=== PATIENT | female | born 1990 | race Caucasian/White ===

== ENCOUNTER 2022-12-23 09:32 | Outpatient (CLI) | payer OTHER, SELFPAY | END 2022-12-23 09:33 | disposition home or self-care (01) | PROVIDERS: PCP Family Medicine; Visit Provider Family Medicine | DX: Z00.00 Encounter for general adult medical examination without abnormal findings (principal); R53.83 Other fatigue; F41.9 Anxiety disorder, unspecified; F32.A Depression, unspecified; Z13.6 Encounter for screening for cardiovascular disorders | CPT/HCPCS: 80053; 80061; 84443 ==

== ENCOUNTER 2023-03-07 14:19 | Emergency (ER) | payer OTHER, SELFPAY ==
[2023-03-07 14:36] VITALS: BP 111/77; PULSE 95; RESP 16; TEMP 37.3; O2SAT 99; BMI 33.9
--- NOTE | 2023-03-07 15:54 | ED.GENADULT ---
HPI - General Adult General Time Seen by Provider: 15:55 Date Seen: 03/07/23 Chief complaint: Extremity Pain/Injury, Lower Stated complaint: R foot injury Time Seen by Provider: 03/07/23 15:45 Source: patient and RN notes reviewed Mode of arrival: wheelchair Limitations: no limitations History of Present Illness HPI narrative: Janet is a 33-year-old female that is about 8 weeks coming in with right foot pain. She points to the plantar surface by the metatarsal heads. It hurts to walk on it, feels somewhat swollen. No numbness tingling, no trauma, no fevers or chills. No history of thromboembolic disease. Related Data Home Medications Medication Instructions Recorded Confirmed ibuprofen 200 mg capsule 200 mg PO Q6H PRN 12/23/22 02/15/23 Previous Rx's Medication Instructions Recorded lorazepam 0.5 mg tablet (Ativan) 0.25 - 0.5 mg (0.5 - 1 x 0.5 mg) 12/23/22 PO QDAY PRN panic attack #10 tabs sumatriptan succinate 100 mg 100 mg PO .COMPLEX PRN migraine 12/23/22 tablet (Imitrex) headache #7 tabs trazodone 50 mg tablet 50 mg PO QDAY PRN insomnia #30 tabs 12/23/22 Asmanex HFA 200 mcg/actuation 1 puff inhalation QHS #13 grams 02/03/23 aerosol inhaler (mometasone) albuterol sulfate 90 mcg/actuation 2 puff inhalation Q6H PRN 02/03/23 aerosol inhaler shortness of breath or wheezing #8.5 grams montelukast 10 mg tablet 10 mg PO QDAY #90 tabs 02/03/23 venlafaxine 37.5 mg 37.5 - 150 mg (1 - 4 x 37.5 mg) PO 02/15/23 capsule,extended release 24 hr QDAY #90 caps (Effexor XR) Allergies Allergy/AdvReac Type Severity Reaction Status Date / Time oxycodone Allergy Severe Vomiting Verified 03/07/23 14:40 escitalopram [From Lexapro] AdvReac Intermediate Dizziness Verified 03/07/23 14:40 z-pac Allergy Intermediate GI upset Uncoded 02/03/23 09:00 Review of Systems Narrative: As per HPI. 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 - Other specified metabolic disorders (ICD-10) Menorrhagia ?N92.0 - Excessive and frequent menstruation with regular cycle (ICD-10) Mild persistent asthma ?J45.30 - Mild persistent asthma, uncomplicated (ICD-10) Anxiety ?F41.9 - Anxiety disorder, unspecified (ICD-10) Depression ?F32.A - Depression, unspecified (ICD-10) Palpitations ?R00.2 - Palpitations (ICD-10) Migraine with aura ?G43.109 - Migraine with aura, not intractable, without status migrainosus (ICD-10) Surgical History History of colonoscopy (2007) ?Z98.890 - Other specified postprocedural states (ICD-10) Hx of esophagogastroduodenoscopy (2007) ?Z98.890 - Other specified postprocedural states (ICD-10) History of hip surgery (2015) ?Z98.890 - Other specified postprocedural states (ICD-10) History of appendectomy (~2003) ?Z90.49 - Acquired absence of other specified parts of digestive tract (ICD-10) Family History Maternal Grandmother Valvular heart disease Mother Depression with anxiety Bipolar disorder Social History Narrative: 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, 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, 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, 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 [place] Lifetime nonsmoker 2 alcoholic drinks a week No drug use Smoking Status: Never smoker How often do you have a drink containing alcohol: never AUDIT-C Alcohol total score: 0 Non-prescribed substance use: denies use Little interest or pleasure in doing things: nearly every day Feeling down, depressed, or hopeless: nearly every day Exam Const: Vital Signs, click to edit/add: Vital Signs - 24 hr 03/07/23 14:36 Temperature 99.2 F Pulse Rate [Pulse Oximeter] 95 Respiratory Rate 16 Blood Pressure [Ri ght Upper Arm] 111/77 Pulse Oximetry 99 Oxygen Delivery Me thod Room Air Janet is in a wheelchair, right foot elevated. There may be is a sense of a little swelling over the pads centrally the middle tarsal heads on the right foot. She has no calf tenderness, no pretibial edema. Ankle mortise is normal, no swelling. She has normal dorsalis pedis and posterior tibialis pulses, foot is warm. She can move about the ankle and wiggle the toes. She states when she moves the ankle though she feels pain into the metatarsal head areas. When I compress the metatarsal heads from side to side in word she complains of pain with this. She has pain primarily over the 1st and 2nd and 2nd and 3rd interdigital web spaces by the metatarsal heads on this foot. There is no warmth or erythematous change. Documenting provider has reviewed patient's vital signs: yes Course Course ED Course: Patient will have an x-ray of her foot to rule out atraumatic injury, ultrasound of the lower extremity to rule out venous thrombotic disease. We did discuss conditions such is metatarsalgia, other foot conditions that could become issue without trauma. Reevaluation(s) Time of Reevaluation #1: 18:02 Reevaluation #1: Reviewed with patient her a negative ultrasound and x-ray. We did discuss that the ultrasound does not extend down into the foot, do not have way to look at veins within the foot. Thus, if she starts noticing increased swelling and pain up into the calf, does need re-evaluation. The meantime will try a postop shoe. She does have crutches for pain free weight-bearing. Recommend follow up in clinic with her primary, consider referral to Podiatry or Orthopedics if ongoing symptoms. Vital Signs Vital signs: Initial Vital Signs Temperature 99.2 F 03/07/23 14:36 Temperature Source Temporal Artery Scan 03/07/23 14:36 Pulse Rate 95 03/07/23 14:36 Respiratory Rate 16 03/07/23 14:36 Blood Pressure 111/77 03/07/23 14:36 Blood Pressure Mean 88 03/07/23 14:36 Blood Pressure Position Sitting 03/07/23 14:36 Pulse Oximetry 99 03/07/23 14:36 Oxygen Delivery Method Room Air 03/07/23 14:36 Vital Signs Temperature 99.2 F 03/07/23 14:36 Pulse Rate 95 03/07/23 14:36 Respiratory Rate 16 03/07/23 14:36 Blood Pressure 111/77 03/07/23 14:36 Pulse Oximetry 99 03/07/23 14:36 Oxygen Delivery Method Room Air 03/07/23 14:36 Temperature 99.2 F 03/07/23 14:36 Pulse Rate 95 03/07/23 14:36 Respiratory Rate 16 03/07/23 14:36 Blood Pressure 111/77 03/07/23 14:36 Pulse Oximetry 99 03/07/23 14:36 Oxygen Delivery Method Room Air 03/07/23 14:36 Medical Decision Making Imaging Data Venous US: Attestation: I have reviewed the pertinent imaging results. Radiologist's impression: Patient: JANET RIVERO Facility:?[facility] Patient ID:?[id number] Site Patient ID:?[id number]. Site :?[id number] Study:?US Extremity Right DVT-03/07/2023 4:43:29 PM Ordering Physician:Charles Beyer Final Report: INDICATION: Right lower extremity swelling. TECHNIQUE: Ultrasound venous duplex bilateral lower extremity. Compression venous exam was performed using martell-scale, color Doppler, and spectral Doppler analysis. COMPARISON: None. FINDINGS: Deep veins: Sonographic imaging demonstrates the right common femoral, deep femoral, superficial femoral, popliteal, and posterior tibial veins to be fully compressible with normal color Doppler blood flow. The left common femoral vein demonstrated normal flow on color Doppler imaging. Superficial veins: Greater saphenous vein is fully compressible. No popliteal cyst. IMPRESSION: Normal right lower extremity venous ultrasound. No deep vein thrombus. Dictated by Antonio Trevino MD @ 03/07/2023 5:42:51 PM (Electronic Signature) XR right foot: Attestation: I have reviewed the pertinent imaging results. Radiologist's impression: Patient: JANET RIVERO Facility:?[facility] Patient ID:?[id number] Site Patient ID:?[id number]. Site :?[id number] Study:?XRay Extremity Right 3V-03/07/2023 4:19:09 PM Ordering Physician:Charles Beyer Final Report: Indication: Trauma. Technique: Three views right foot Comparison: None. Findings: Bones: Alignment is normal. No fractures or bone lesions. Joint spaces: Mild joint space narrowing of the 1st MTP joint. Remaining joint spaces preserved. No erosions. Soft tissues: Unremarkable. Impression: Mild narrowing of 1st MTP joint. Remaining joint space is preserved. No erosions. No acute fracture. Dictated by Kwadwo Fischer MD @ 03/07/2023 5:01:36 PM (Electronic Signature) Discharge Plan Discharge Clinical Impression: Acute pain of right foot Patient Disposition: Home, Self-Care Condition: Stable Instructions: Arthralgia (ED) Additional Instructions: There can be conditions of the foot, things like metatarsalgia, Arnold's neuroma, except aura, that can cause pain within the foot that are not traumatic. Can use the postop shoe and or crutches as needed for pain-free weight-bearing. Can use Tylenol per bottle directions for pain management during . Otherwise can try ice and elevation. Follow up with her primary care provider within the next week for recheck. Consideration for Orthopedics or Podiatry if ongoing issues. Activity Level: Activity as Tolerated Prescriptions: No Action ibuprofen 200 mg capsule 200 mg PO Q6H PRN lorazepam [Ativan] 0.5 mg tablet 0.25 - 0.5 mg PO QDAY PRN (Reason: panic attack) Qty: 10 0RF sumatriptan succinate [Imitrex] 100 mg tablet 100 mg PO .COMPLEX PRN (Reason: migraine headache) Qty: 7 4RF Rx Instructions: 100 mg orally PRN; trazodone 50 mg tablet 50 mg PO QDAY PRN (Reason: insomnia) Qty: 30 0RF montelukast 10 mg tablet 10 mg PO QDAY Qty: 90 4RF Asmanex HFA 200 mcg/actuation HFA aerosol inhaler 1 puff inhalation QHS Qty: 13 12RF albuterol sulfate 90 mcg/actuation HFA aerosol inhaler 2 puff inhalation Q6H PRN (Reason: shortness of breath or wheezing) Qty: 8.5 4RF venlafaxine [Effexor XR] 37.5 mg capsule,extended release 24hr 37.5 - 150 mg PO QDAY Qty: 90 1RF Rx Instructions: Take 1 c po qd x 4 d, then increase to 2 c qd x 1 wk, then increase to 4 c daily for depression Follow Up/Referrals: Ksenia Hannon MD [Primary Care Provider] - Stand Alone Forms: [employer] Info Instructions
--- NOTE | 2023-03-07 16:03 | CRLHL7_ITS ---
For Patients: As a result of the Cures Act, medical imaging exams and procedure reports are released immediately into your electronic medical record. You may view this report before your referring provider. If you have questions, please contact your health care provider. Indication: Trauma. Technique: Three views right foot Comparison: None. Findings: Bones: Alignment is normal. No fractures or bone lesions. Joint spaces: Mild joint space narrowing of the 1st MTP joint. Remaining joint spaces preserved. No erosions. Soft tissues: Unremarkable. Impression: Mild narrowing of 1st MTP joint. Remaining joint space is preserved. No erosions. No acute fracture. Dictated by Kwadwo Fischer MD @ 03/07/2023 5:01:36 PM (Electronically Signed)
--- NOTE | 2023-03-07 16:03 | CRLHL7_ITS ---
For Patients: As a result of the Century Cures Act, medical imaging exams and procedure reports are released immediately into your electronic medical record. You may view this report before your referring provider. If you have questions, please contact your health care provider. INDICATION: Right lower extremity swelling. TECHNIQUE: Ultrasound venous duplex bilateral lower extremity. Compression venous exam was performed using martell-scale, color Doppler, and spectral Doppler analysis. COMPARISON: None. FINDINGS: Deep veins: Sonographic imaging demonstrates the right common femoral, deep femoral, superficial femoral, popliteal, and posterior tibial veins to be fully compressible with normal color Doppler blood flow. The left common femoral vein demonstrated normal flow on color Doppler imaging. Superficial veins: Greater saphenous vein is fully compressible. No popliteal cyst. IMPRESSION: Normal right lower extremity venous ultrasound. No deep vein thrombus. Dictated by Antonio Trevino MD @ 03/07/2023 5:42:51 PM (Electronically Signed)
--- NOTE | 2023-03-07 18:04 | ED.NURSE ---
placed a post op shoe on the right foot
== END 2023-03-07 18:10 | disposition home or self-care (01) ==
PROVIDERS: Emergency Provider Family Medicine; PCP Family Medicine
DX: M79.671 Pain in right foot (principal)
CPT/HCPCS: 73630; 93971; 99283; 99284

== ENCOUNTER 2023-03-15 10:21 | Outpatient (CLI) | payer OTHER, SELFPAY ==
--- NOTE | 2023-03-15 10:45 | CRLHL7_ITS ---
For Patients: As a result of the Cures Act, medical imaging exams and procedure reports are released immediately into your electronic medical record. You may view this report before your referring provider. If you have questions, please contact your health care provider. INDICATION: First trimester scan, establish dates. COMPARISON: None. TECHNIQUE: Real-time martell-scale imaging of the pelvis was performed. FINDINGS: Sonographic imaging demonstrates a single living intrauterine gestation. The embryo demonstrates a regular cardiac rate measuring 174 beats per minute. The embryo`s crown-rump length measurement of 2.5 cm corresponds to a gestational age of 9 weeks 1 day with a sonographic due date of 10.17.23. There is a normal-appearing yolk sac. There are no gross abnormalities noted within the embryo at this early state of development. The gestational sac has a normal appearance. There is no evidence of a perigestational hemorrhage. The amount of fluid within the sac appears appropriate for gestational age. The cervix is closed. The myometrium appears normal. The ovaries are of normal size. There are no suspicious fluid collections noted in the cul-de-sac. IMPRESSION: Normal first trimester OB ultrasound exam. Gestational age calculated at 9 weeks 1 day with a sonographic due date of 10.17.23. Dictated by Royce Roa MD @ 03/16/2023 12:03:56 PM (Electronically Signed)
== END 2023-03-15 10:22 | disposition home or self-care (01) ==
LOC: US 10:22
PROVIDERS: PCP Family Medicine; Visit Provider Advanced Practice Midwife
DX: Z34.91 Encounter for supervision of normal pregnancy, unspecified, first trimester (principal); Z3A.09 9 weeks gestation of pregnancy
CPT/HCPCS: 76817; 82306; 86703; 86706; 86803; 86850; 86900; 86901; 87086; 87340; 87491; 87591

== ENCOUNTER 2023-03-15 11:41 | Outpatient (CLI) | payer OTHER, SELFPAY ==
[2023-03-15 15:55] LABS: Chlamydia DNA Amplified* NOT DETECTED (No Detected); GC DNA Amplified* NOT DETECTED (No Detected)
== END 2023-03-15 11:42 | disposition home or self-care (01) ==
PROVIDERS: PCP Family Medicine; Visit Provider Advanced Practice Midwife
DX: Z34.91 Encounter for supervision of normal pregnancy, unspecified, first trimester (principal)
CPT/HCPCS: 82306; 86592; 86703; 86704; 86706; 86762; 86787; 86803; 86850; 86900; 86901; 87086; 87340; 87491; 87591

== ENCOUNTER 2023-05-08 12:14 | Emergency (ER) | payer OTHER, SELFPAY ==
[2023-05-08 12:35] VITALS: BP 142/88; PULSE 120; RESP 20; TEMP 37.9; O2SAT 98; BMI 34.4
--- NOTE | 2023-05-08 12:44 | ED.GENADULT ---
HPI - General Adult General Chief complaint: Cough Stated complaint: Flu symptoms Time Seen by Provider: 05/08/23 12:17 History of Present Illness HPI narrative: [age] year white female who is about 16 weeks estimated age , presents with a cough and cold over the last few days. She started getting sick earlier in the week about 5 days ago and then let yesterday and today has had a cough. Dry hacking cough. She has not had any known exposures. She presents to ED. [facility]. She has had no vaginal bleeding or contractions. Related Data Home Medications Medication Instructions Recorded Confirmed vits [id number] fum tab PO DAILY 03/15/23 04/12/23 28 mg iron-folic acid 800 mcg tablet (Classic ) aspirin 81 mg tablet,delayed 81 mg PO QDAY 04/12/23 04/12/23 release (Fabiano Low Dose Aspirin) Previous Rx's Medication Instructions Recorded lorazepam 0.5 mg tablet (Ativan) 0.25 - 0.5 mg (0.5 - 1 x 0.5 mg) 12/23/22 PO QDAY PRN panic attack #10 tabs sumatriptan succinate 100 mg 100 mg PO .COMPLEX PRN migraine 12/23/22 tablet (Imitrex) headache #7 tabs trazodone 50 mg tablet 50 mg PO QDAY PRN insomnia #30 tabs 12/23/22 Asmanex HFA 200 mcg/actuation 1 puff inhalation QHS #13 grams 02/03/23 aerosol inhaler (mometasone) albuterol sulfate 90 mcg/actuation 2 puff inhalation Q6H PRN 02/03/23 aerosol inhaler shortness of breath or wheezing #8.5 grams montelukast 10 mg tablet 10 mg PO QDAY #90 tabs 02/03/23 venlafaxine 37.5 mg 37.5 - 150 mg (1 - 4 x 37.5 mg) PO 02/15/23 capsule,extended release 24 hr QDAY #90 caps (Effexor XR) cholecalciferol (vitamin D3) 1,250 1,250 mcg PO DIRECTED #10 caps 03/15/23 mcg (50,000 unit) capsule ondansetron HCl 4 mg tablet 4 mg PO TID PRN nausea and 03/15/23 vomiting #30 tabs Allergies Allergy/AdvReac Type Severity Reaction Status Date / Time oxycodone Allergy Severe Vomiting Verified 04/12/23 09:13 escitalopram [From Lexapro] AdvReac Intermediate Dizziness Verified 04/12/23 09:13 z-pac Allergy Intermediate GI upset Uncoded 04/12/23 09:13 walnuts AdvReac Intermediate Rash Uncoded 04/12/23 09:14 Review of Systems Status of ROS: Reports: 6 or more systems reviewed and unremarkable except as noted in History and below PFSH PFS Medical History Low vitamin D level ?R79.89 - Other specified abnormal findings of blood chemistry (ICD-10) Passive suicidal ideations ?R45.851 - Suicidal ideations (ICD-10) Medication management ?Z79.899 - Other usp (current) drug therapy (ICD-10) Mood disorder ?F39 - Unspecified mood [affective] disorder (ICD-10) History of Holter monitoring ?Z98.890 - Other specified postprocedural states (ICD-10) 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 - Other specified metabolic disorders (ICD-10) Menorrhagia ?N92.0 - Excessive and frequent menstruation with regular cycle (ICD-10) Mild persistent asthma ?J45.30 - Mild persistent asthma, uncomplicated (ICD-10) Anxiety ?F41.9 - Anxiety disorder, unspecified (ICD-10) Depression ?F32.A - Depression, unspecified (ICD-10) Palpitations ?R00.2 - Palpitations (ICD-10) Migraine with aura ?G43.109 - Migraine with aura, not intractable, without status migrainosus (ICD-10) Surgical History History of colonoscopy (2007) ?Z98.890 - Other specified postprocedural states (ICD-10) Hx of esophagogastroduodenoscopy (2007) ?Z98.890 - Other specified postprocedural states (ICD-10) History of hip surgery (2015) ?Z98.890 - Other specified postprocedural states (ICD-10) History of appendectomy (~2003) ?Z90.49 - Acquired absence of other specified parts of digestive tract (ICD-10) Family History Maternal Grandmother Valvular heart disease Mother Depression with anxiety Bipolar disorder Father Stroke Social History Narrative: SOCIAL? ? Education: some college? ? Work: [employer], [employer]? ? Partner: Julio, Not , [employer]? ? Lives with: Miles? ? Pets: Dog? ? Abuse: Denies past Safe at home with current partner ? ? Special Diet: Denies? ? Ok with a blood transfusion: yes? ? Culture or scientology beliefs: denies? RISK FACTORS? ? Exercise Times/wk: denies, previous runner, makes her nauseated. ? ? Depression/Anxiety: Both.? ? Previous Treatments: Prozac, escitalopram, Started on effexor, unable to keep down, waiting until not nauseated Therapy: denies TOYIN: 14 PHQ 9: 16 Sitting at home frequently, not doing much. Partner is often not home, so unable to help.? Denies thought of suicide or plans. ? Seat Belt Use: Routinely ? Smoking: Denies past/present? ? Alcohol/day: Denies while ? ? Caffeine: Occasionally ? ? Drug Use: Denies past/present? 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 Meléndezsper Lifetime nonsmoker 2 alcoholic drinks a week No drug use What is your current living situation?: I presently have a place to live Problems where you live: no known problems In the past 12 months, utilities in danger of being shut off: no In the past 12 mos, have been you worried that your food would run out before you had money to buy more?: never true In the past 12 mos, the food you bought just didn't last and you didn't have money to buy more?: never true Smoking Status: Never smoker How often do you have a drink containing alcohol: never AUDIT-C Alcohol total score: 0 Non-prescribed substance use: denies use How often does anyone, including family, friends and others, physically hurt you: never How often does anyone, including family, friends and others, insult or talk down to you: rarely How often does anyone, including family, friends and others, threaten you with harm: never How often does anyone, including family, friends and others, scream or curse at you: never Little interest or pleasure in doing things: more than half the days Feeling down, depressed, or hopeless: more than half the days Exam Narrative: Exam Narrative: Objective mild low-grade temperature 100.2? O2 sat 90% on room air Alert orient x3 HEENT is unremarkable she has a point of motion of her neck chest is clear no rales or wheezing pulses regular Good peripheral perfusion noted , patient is ambulatory Const: Vital Signs, click to edit/add: Vital Signs - 24 hr 05/08/23 12:35 05/08/23 12:53 Temperature 100.2 F H Pulse Rate [Pulse Oximeter] 120 H 93 Respiratory Rate 20 Blood Pressure [Ri ght Upper Arm] 142/88 H Pulse Oximetry 98 98 Oxygen Delivery Me thod Room Air Room Air Course Vital Signs Vital signs: Initial Vital Signs Temperature 100.2 F H 05/08/23 12:35 Temperature Source Temporal Artery Scan 05/08/23 12:35 Pulse Rate 120 H 05/08/23 12:35 Respiratory Rate 20 05/08/23 12:35 Blood Pressure 142/88 H 05/08/23 12:35 Blood Pressure Mean 106 H 05/08/23 12:35 Blood Pressure Position Sitting 05/08/23 12:35 Pulse Oximetry 98 05/08/23 12:35 Oxygen Delivery Method Room Air 05/08/23 12:35 Vital Signs Temperature 100.2 F H 05/08/23 12:35 Pulse Rate 120 H 05/08/23 12:35 Respiratory Rate 20 05/08/23 12:35 Blood Pressure 142/88 H 05/08/23 12:35 Pulse Oximetry 98 05/08/23 12:35 Oxygen Delivery Method Room Air 05/08/23 12:35 Temperature 100.2 F H 05/08/23 12:35 Pulse Rate 93 05/08/23 12:53 Respiratory Rate 20 05/08/23 12:35 Blood Pressure 142/88 H 05/08/23 12:35 Pulse Oximetry 98 05/08/23 12:53 Oxygen Delivery Method Room Air 05/08/23 12:53 Medical Decision Making MDM Narrative Medical decision making narrative: Sixteen weeks estimated gestational age with upper respiratory infection, probable RSV. Patient will get a COVID/influenza/RSV test. Will call her with the results. I think she can go home, rest light activity, Tylenol as needed, steam, fluid such as hot tea would be reasonable. Discussed with her OB providers tomorrow with update. Return to ED as needed problems or concerns. At this point does not appear toxic and I do not hear any pneumonia symptoms and with her I think the risk would outweigh the benefit of x-raying. Discharge Plan Discharge Clinical Impression: Acute upper respiratory infection Patient Disposition: Home, Self-Care Condition: Stable Additional Instructions: Steam, fluids, herbal tea as needed. [facility] the next day with symptoms, return to ED sooner problems concerns difficulty. Tylenol acceptable to take Activity Level: Light activity Discharge Diet: Regular Prescriptions: No Action lorazepam [Ativan] 0.5 mg tablet 0.25 - 0.5 mg PO QDAY PRN (Reason: panic attack) Qty: 10 0RF sumatriptan succinate [Imitrex] 100 mg tablet 100 mg PO .COMPLEX PRN (Reason: migraine headache) Qty: 7 4RF Rx Instructions: 100 mg orally PRN; trazodone 50 mg tablet 50 mg PO QDAY PRN (Reason: insomnia) Qty: 30 0RF Classic 28 mg iron- 800 mcg tablet PO DAILY ondansetron HCl 4 mg tablet 4 mg PO TID PRN (Reason: nausea and vomiting) Qty: 30 3RF montelukast 10 mg tablet 10 mg PO QDAY Qty: 90 4RF Asmanex HFA 200 mcg/actuation HFA aerosol inhaler 1 puff inhalation QHS Qty: 13 12RF albuterol sulfate 90 mcg/actuation HFA aerosol inhaler 2 puff inhalation Q6H PRN (Reason: shortness of breath or wheezing) Qty: 8.5 4RF venlafaxine [Effexor XR] 37.5 mg capsule,extended release 24hr 37.5 - 150 mg PO QDAY Qty: 90 1RF Rx Instructions: Take 1 c po qd x 4 d, then increase to 2 c qd x 1 wk, then increase to 4 c daily for depression aspirin [Fabiano Low Dose Aspirin] 81 mg tablet,delayed release (DR/EC) 81 mg PO QDAY cholecalciferol (vitamin D3) 1,250 mcg (50,000 unit) capsule 1,250 mcg PO DIRECTED Qty: 10 0RF Rx Instructions: take 1 c po qwk x 5 wk, then 1 c monthly x 5 mo, for low vit d Follow Up/Referrals: Ksenia Hannon MD [Primary Care Provider] - Stand Alone Forms: [employer] [facility] Info Instructions
[2023-05-08 12:53] VITALS: PULSE 93; O2SAT 98
[2023-05-08 13:46] LABS: PCR FLU A Negative PCR FLU A (Negative); PCR FLU B Negative PCR FLU B (Negative); PCR RSV Negative PCR RSV (Negative)
[2023-05-08 13:49] LABS: SARS PCR* Negative SARS-CoV-2 (Negative)
== END 2023-05-08 12:55 | disposition home or self-care (01) ==
PROVIDERS: Emergency Provider Family Medicine; PCP Family Medicine
DX: J06.9 Acute upper respiratory infection, unspecified (principal); Z3A.16 16 weeks gestation of pregnancy
CPT/HCPCS: 87631; 99283

== ENCOUNTER 2023-06-01 07:11 | Outpatient (CLI) | payer OTHER, SELFPAY ==
--- NOTE | 2023-06-01 07:15 | CRLHL7_ITS ---
For Patients: As a result of the Century Cures Act, medical imaging exams and procedure reports are released immediately into your electronic medical record. You may view this report before your referring provider. If you have questions, please contact your health care provider. INDICATION: Evaluate anatomy. COMPARISON: 03/15/2023 TECHNIQUE: Real time martell scale imaging of the fetus was performed as well as color Doppler analysis of the umbilical vessels. FINDINGS: Sonographic imaging demonstrates a single living intrauterine gestation. Fetus demonstrates a regular cardiac rate of 163 beats per minute. Fetus has a variable position. The placenta lies posteriorly without evidence of placenta previa. Edge of the placenta is located 3.2 cm from the internal cervical os. Amniotic fluid volume appears normal. Single deepest vertical pocket: 5.2 cm. The cervix is closed and measures 3.8 cm in length. The composite ultrasound gestational age is calculated at 21 weeks 0 days with an estimated sonographic due date of 10/12/2023. The estimated weight is 367 grams which lies at the 80th %. The following biometric measurements were obtained: Biparietal diameter: 5.1 cm/21 weeks 2 days 92nd% Head circumference: 18.6 cm/21 weeks 0 days 83rd% Abdominal circumference: 15.6 cm/20 weeks 6 days 71st% Femur length: 3.3 cm/20 weeks 2 days 53rd% The HC/AC ratio measures: 1.19 range (1.06-1.25) On anatomic survey, there is a normal appearance of the cerebral ventricles, cavum septi pellucidi, cisterna magna and cerebellum. The nose, lips, and facial profile appear normal. The cervical, thoracic and lumbar spine are well visualized and appear normal. There is a normal four-chamber heart view and the left and right ventricular outflow tracts appear normal. The diaphragm and stomach appear normal. The kidneys and bladder also appear normal. There is a normal three-vessel cord and cord insertion site. The four extremities appear normal. IMPRESSION: Sonographic gestational age 21 weeks 0 days and sonographic due date of 10/12/2023. Sonographic age 1 week ahead of the clinical age. Estimated weight 80th percentile. Abdominal circumference 71st percentile. No intrinsic abnormalities noted on anatomic survey. Dictated by Royce Roa MD @ 06/01/2023 10:34:45 AM (Electronically Signed)
== END 2023-06-01 07:12 | disposition home or self-care (01) ==
LOC: US 07:11
PROVIDERS: PCP Family Medicine; Visit Provider Obstetrics & Gynecology
DX: Z34.92 Encounter for supervision of normal pregnancy, unspecified, second trimester (principal); Z3A.21 21 weeks gestation of pregnancy
CPT/HCPCS: 76805

== ENCOUNTER 2023-07-13 19:31 | Outpatient (CLI) | payer OTHER, SELFPAY ==
--- OUTSIDE RECORDS SUMMARY | 2023-07-13 19:35 | XMS_ITS | Encounter Summary ---
Author Name Unknown Organization [facility] Address [address] [place] [address] Care Team Providers Care Hose Handler Name Role Phone Erendira Ann APRN, C.N.P., D.N.P. Primary Care Provider Encounter Details Date Type Department Care Team (Late st Contact Info) Description 03/10/2006 Historical Ophthalmology [facility] Corinne Newman M.D. [address] [place] [address] Social History Tobacco Use Types Packs/Day Years Used Date Smoking Tobacco: Never Assessed Sex and Gender Information Value Date Recorded Sex Assigned at Not on file Gender Identity Not on file Sexual Orientation Not on file documented as of this encounter Progress Notes * Corinne Newman M.D. - 03/10/2006 12:00 AM CDT Eye General CHIEF COMPLAINT seeing double HISTORY OF PRESENT ILLNESS Information obtained mainly from mother. Patient speaks very softly. Yesterday, patient has 4 steroid injections in the back of her head and neck for headaches. She has had headaches since June, varying in intensity. After the injections, patient became dizzy and she was laid down and began seeing double. For past few weeks, patients eyes were dilated. Mother had patient seen at [place] [facility] the eyes were reactive and had no explanation for the dilated pupils. Since eyes have been dilated, headaches have increased. Patient states the diplopia is horizontal and sort of like a shadow.Closing either eye does not relieve the diplopia. She is contact lens wearer. Patient denies ocularpain. She states the headaches are frontal and today she rates her pain at a 9 on a scale of 0-10. S he takes Neurontin,Vultaran, and Tylenol. The Neurontin seems to lessen the pain. She was diagnosedwith depression for past 2 years. KAREN: 16yoF w/ h/o depression, anxiety, and chronic daily headache presents w/ 1 day h/o diplopia and dizziness after receiving bilateral occipital and subocciptal injections for the headache. After the injections the patient was dizzy and then developed diplopia. She describes it occurring horizontally, with a faint image to the side. It is present when she closes either the right or left eye andsees it with both eyes. It is worse at near and resolves with blinking. Reports at least one prior episode of double vision that resolved after 10 minutes - does not remember details. The headache isfrontal and present all the time with varying severity and has been worse in the last two weeks. She reports light, noise, and forgetting her pills make it worse. Sometimes associated nausea. Her older sister also has h/o chronic headaches and has learned to live with them per Mom. The dizziness isdescribed as the room spinning. Per mom she has been eating and drinking (only crackers for breakfas t). Reported the dilation started about two weeks ago (per notes 02/24) that was first noticed by her chiropractor per Mom. Prozac was increased from 20 -> 30 mg on 02/14. MRI/MRA 07/12/05 negative. IMPRESSION / REPORT / PLAN #1 Monocular Diplopia No serious DOCK HAND or ocular pathology. Diplopia present still with pinhole. Will likely resolve. Plan: Obtain ORB scan in case 3rd order aberration such as coma. #2 Headache #3 Depression Continue current management with Psych and pain. 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 [address] [place] [phone] PCP - General Family Medicine 02/26/19 documented as of this encounter
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
--- OUTSIDE RECORDS SUMMARY | 2023-07-13 19:35 | XMS_ITS | Encounter Summary ---
Author Name Unknown Organization [facility] Address [address] [place] [address] Care Team Providers Care Assistant Professor Of Mathematics Name Role Phone Erendira Ann APRN, C.N.P., D.N.P. Primary Care Provider Encounter Details Date Type Department Care Team (Late st Contact Info) Description 09/30/2020 Orders Only Department of Family Medicine, [facility], in [place], [place] [address] [place] [phone] Erendira Ann APRN, C.N.P., D.N.P. [address] [place] [phone] Social History Tobacco Use Types Packs/Day Years Used Date Smoking Tobacco: Never Smokeless Tobacco: Never Alcohol Use Standard Drinks/Week Comments Yes 2 (1 standard drink = 0.6 oz pur e alcohol) socially Humiliation, Afraid, Rape, and Kick questionnair e Answer Date Recorded Within the last year, have y ou been afraid of your partner or ex-partner? No 09/29/2020 Within the last year, have y ou been humiliated or emotionally abused in other ways by your partner or ex-partner? No Within the last year, have y ou been kicked, hit, slapped, or otherwise physically hurt by your partner or ex-partner? No 09/29/2020 Within the last year, have y ou been raped or forced to have any kind of sexual activity by your partner or ex-partner? No 09/29/2020 Social Connection and Isolation Panel [NHANES] A nswer Date Recorded In a typical week, how many times do you talk on the phone with family, friends, or neighbors? Twice a week 09/30/19 21 How often do you get togethe r with friends or relatives? Once a week 09/29/2020 How often do you attend chur ch or roman catholic services? 1 to 4 times per year 09/29/2020 Do you belong to any clubs o r organizations such as roman catholic groups, unions, fraternal or athletic groups, or school groups? No 09/29/2020 How often do you attend meet ings of the clubs or organizations you belong to? Never 09/29/2020 Are you , , di vorced, , never , or living with a partner? Never 09/29/2020 AUDIT-C Answer Date Recorded Q1: How often do you have a drink containing alc ohol? 2-4 times a month 09/29/2020 Q2: How many drinks containi ng alcohol do you have on a typical day when you are drinking? 1 or 2 09/29/2020 Q3: How often do you have si x or more drinks on one occasion? Less than monthly 09/29/2020 Overall Financial Resource Strain (CARDIA) Answe r Date Recorded How hard is it for you to pa y for the very basics like food, housing, medical care, and heating? Somewhat hard 09/29/2020 PHQ-2 Answer Date Recorded PHQ-2 Score 1 09/29/2020 [facility] - Occupational Stress Questionnaire Answer Date Recorded Do you feel stress - tense, restless, nervous, or anxious, or unable to sleep at night because your mind is troubled all the time - these days? To some extent 09/29/2020 Exercise Vital Sign Answer Date Recorde d On average, how many days pe r week do you engage in moderate to strenuous exercise (like a brisk walk)? 3 days 09/29/2020 On average, how many minutes do you engage in exercise at this level? 30 min 09/29/2020 Hunger Vital Sign Answer Date Recorded Within the past 12 months, y ou worried that your food would run out before you got the money to buy more. Never true 09/30/19 21 Within the past 12 months, t he food you bought just didn't last and you didn't have money to get more. Never true 09/29/2020 PRAPARE - Transportation Answer Date Re corded In the past 12 months, has l ack of transportation kept you from medical appointments or from getting medications? No 09/05 In the past 12 months, has l ack of transportation kept you from meetings, work, or from getting things needed for daily living? No 09/29/2020 Housing Stability Vital Sign Answer Tunde e Recorded In the last 12 months, was t here a time when you were not able to pay the mortgage or rent on time? No 09/29/2020 In the last 12 months, how many places have you lived? 1 09/29/2020 In the last 12 months, was t here a time when you did not have a steady place to sleep or slept in a snf (including now)? No 09/29/2020 Depression Answer Date Recor ded PHQ-9 Total Score (max 27) 6 09/29 Nutrition Answer Date Recorded Nutrition: EVOO Fat Source No 09/29 On average, how many serving s of fruits and vegetables do you eat per day (serving size is equal to 1 cup or approximately the size of a tennis ball)? 2-3 09/29/2020 Dental Answer Date Recorded Dental: Regular Dentist Yes 09/30/19 Employment Answer Date Recorded Employment status Employed and actively working without restrictions 09/29/2020 Education Answer Date Recorded What is the highest level of school you have completed or the highest degree you have received? Some college, no degree 03/06/2019 Sex and Gender Information Value Date Recorded Sex Assigned at Not on file Gender Identity Not on file Sexual Orientation Not on file documented as of this encounter Plan of Treatment Not on file documented as of this encounter Visit Diagnoses Not on filedocumented in this encounter Additional Health Concerns Infection Onset Date Last Indicated Resolved Time COVID19 Pending 06/11/2021 06/11/2021 06/11/2021 9 :54 AM LAB COURIER COVID19 Pending 09/29/2021 09/29/2021 09/29/2021 3 :58 PM CDT COVID19 Pending 05/02/2022 05/02/2022 05/02/2022 7 :29 PM LAB COURIER Assessment Noted Time PHQ-9 Depression Total Score: 6 09/30/19 21 9:57 AM CDT documented as of this encounter Care Teams Assistant Professor Of Mathematics Relationship Specialty Start Date End Date Erendira Ann APRN, C.N.P., D.N.P. [address] [place] [address] PCP - General Family Medicine 02/26/19 documented as of this encounter
--- OUTSIDE RECORDS SUMMARY | 2023-07-13 19:35 | XMS_ITS | Encounter Summary ---
Author Name Unknown Organization [facility] Address [address] [place] [address] Care Team Providers Care Ct Mri Technologist Name Role Phone Erendira Ann APRN, C.N.P., D.N.P. Primary Care Provider Encounter Details Date Type Department Care Team (Late st Contact Info) Description 03/18/2006 Historical Ophthalmology [facility] OPH Porsche Pastor M.D. Social History Tobacco Use Types Packs/Day Years Used Date Smoking Tobacco: Never Assessed Sex and Gender Information Value Date Recorded Sex Assigned at Not on file Gender Identity Not on file Sexual Orientation Not on file documented as of this encounter Progress Notes * Porsche Pastor M.D. - 03/18/2006 12:00 AM CDT Eye Subsequent Visit HISTORY OF PRESENT ILLNESS refraction CDM Reports - EYESV Id: [id number] Status: Fnl documented in this encounter Plan of Treatment Not on file documented as of this encounter Visit Diagnoses Not on filedocumented in this encounter Additional Health Concerns Infection Onset Date Last Indicated Resolved Time COVID19 Pending 03/10/2020 03/10/2020 03/10/2020 1 0:24 PM CDT COVID19 Pending 06/11/2021 06/11/2021 06/11/2021 9 :54 AM ACID CUTTER COVID19 Pending 09/29/2021 09/29/2021 09/29/2021 3 :58 PM CDT COVID19 Pending 05/02/2022 05/02/2022 05/02/2022 7 :29 PM ACID CUTTER Assessment Noted Time PHQ-9 Depression Total Score: 4 10/21/19 06 5:20 PM CDT documented as of this encounter Care Teams Ct Mri Technologist Relationship Specialty Start Date End Date Erendira Ann APRN, C.N.P., D.N.P. [address] [place] [address] PCP - General Family Medicine 02/26/19 documented as of this encounter
--- OUTSIDE RECORDS SUMMARY | 2023-07-13 19:35 | XMS_ITS ---
Author Name Unknown Organization [facility] Address [address] [place] [address] Care Team Providers Care Arboriculture Instructor Name Role Phone Unavailable Unavailable Unavailable Surgery Details Not on file Complications Check Surgery Details section. Procedure Estimated Blood Loss Check Surgery Details section. Procedure Findings Check Surgery Details section. Procedure Specimens Taken Check Surgery Details section.
--- OUTSIDE RECORDS SUMMARY | 2023-07-13 19:35 | XMS_ITS | Referral Summary ---
Author Name Unknown Organization [facility] Address [address] [place] [address] Care Team Providers Care Grab Jack Man Name Role Phone Erendira Ann APRN, C.N.P., D.N.P. Primary Care Provider Source Comments Patient records contain information from all sites at [facility]. For routine questions regarding patient records, call [phone] during business hours, M-F 8:00 AM - 5:00 PM Central Time. Record requests for emergency care only can be directed to [phone] at any time.[facility] Allergies Active Allergy Reactions Criticality Noted Date [...] quad (FLUZONE/FLUARIX) (6 months and older)(PF) 04/07/2022,03/11/2021,04/02/2020,2018,03/14/2017 Social History Tobacco Use Types Packs/Day Years [...] week 12/29/2021 How often do you attend [facility] or hindu services? 1 to 4 times per year 12/29/2021 Do you belong to any clubs o r organizations such as mormonism groups, unions, fraternal or athletic groups, or [...] Answer Date Recorded PHQ-2 Score 2 12/29/2021 [facility] Occupat ional Health - Occupational Stress [...] money to buy more. Never true 12/30/19 Within the past 12 months, t he [...] place to sleep or slept in a skilled nursing (including now)? No 12/29/2021 Depression Answer Date [...] Comments Blood Pressure 103/72 05/02/2022 7:30 PM VEHICLE BODY BUILDER Pulse 111 05/02/2022 7:30 PM VEHICLE BODY BUILDER Temperature 37.8 ??C (100 ??F) 05/02/2022 6:41 PM VEHICLE BODY BUILDER Respiratory Rate 11 09/29/2021 8:30 PM CDT Oxygen Saturation 98% 05/02/2022 7:30 PM VEHICLE BODY BUILDER Inhaled Oxygen Concentration - - Weight 102 kg (225 lb 8.5 oz) 05/02/2022 6:50 PM VEHICLE BODY BUILDER Height 170 cm (5' 6.93) 12/30/2021 8:18 AM CDT Body Mass Index 35.4 12/30/2021 8:18 AM CDT Plan of Treatment Not on file Medical Devices Explanted Type Area Mud Mill Tender Device Identifier Shelf Expiration Date Model / Serial / Lot Intrauterine Device Implanted:Qty: 1 Explanted:Qty: 1 on 03/27/2021 by Arely Hernandez, P.A.-CMercy Intrauterine Device Cervix Description:October of 2016 [facility] ed at [facility] Care Teams Grab Jack Man Relationship Specialty Start Date End Date Erendira Ann APRN, C.N.P., D.N.P. [address] [place] [address] PCP - General Family Medicine 02/26/19
--- NOTE | 2023-08-10 10:23 | W.PM.SLEEP ---
Sleep Study Details Details Interpreting Provider: Shon Date of Sleep Study: 07/13/23 Sleep Study Details: STUDY TYPE:? Home unattended ? BMI:? 36.5 ORDERING PROVIDER:? Christos INDICATION:? Concerns about sleep apnea ? SLEEP SUMMARY:? Monitor time 563.7 minutes RESPIRATORY SUMMARY:? AHI 2.7, left lateral AHI 6.2. Low oxygen 78 3.2% of study oxygen less than 90% Snoring 1.9% PERIODIC LIMB MOVEMENTS OF SLEEP:? Not recorded during home study CARDIAC:? Range 31-132, mean 83.7 IMPRESSION:? The overall study has an AHI within normal limits at 2.7 and does not demonstrate clinically significant obstructive sleep apnea. However the patient does have mild sleep apnea on left side and did have significant desaturations. Bradycardia with heart rate of 31 was also noted during the study. RECOMMENDATION: Avoid sleeping on left side. If sleep disorder strongly suspected recommend repeat study in sleep lab Further cardiac evaluation may be indicated.
== END 2023-07-13 19:32 | disposition home or self-care (01) ==
LOC: SLEEP 19:33
PROVIDERS: PCP Family Medicine; Visit Provider Obstetrics & Gynecology
DX: R06.83 Snoring (principal)
CPT/HCPCS: 95806

== ENCOUNTER 2023-07-27 09:23 | Outpatient (CLI) | payer OTHER, SELFPAY ==
--- OUTSIDE RECORDS SUMMARY | 2023-07-27 09:26 | XMS_ITS ---
Author Name Unknown Organization [facility] Address [address] [place] [address] Care Team Providers Care Customer Service Receptionist Name Role Phone Unavailable Unavailable Unavailable Surgery Details Not on file Complications Check Surgery Details section. Procedure Estimated Blood Loss Check Surgery Details section. Procedure Findings Check Surgery Details section. Procedure Specimens Taken Check Surgery Details section.
--- OUTSIDE RECORDS SUMMARY | 2023-07-27 09:26 | XMS_ITS | Encounter Summary ---
Author Name Unknown Organization [facility] Address [address] [place] [address] Care Team Providers Care Dairy Specialist Name Role Phone Erendira Ann APRN, [...] ILLNESS refraction CDM Reports - EYESV Id: [id number] Status: Fnl documented in this encounter Plan of Treatment Not on file documented as of this encounter Visit Diagnoses Not on filedocumented in this encounter Additional Health Concerns Infection Onset Date Last Indicated Resolved Time COVID19 Pending 03/10/2020 03/10/2020 03/10/2020 1 0:24 PM CDT COVID19 Pending 06/11/2021 06/11/2021 06/11/2021 9 :54 AM CLASSICS PROFESSOR COVID19 Pending 09/29/2021 09/29/2021 09/29/2021 3 :58 PM CDT COVID19 Pending 05/02/2022 05/02/2022 05/02/2022 7 :29 PM CLASSICS PROFESSOR Assessment Noted Time PHQ-9 Depression Total Score: 4 10/21/19 06 5:20 PM CDT documented as of this encounter Care Teams Dairy Specialist Relationship Specialty Start Date End Date Erendira Ann APRN, C.N.P., D.N.P. [address] [place] [address] PCP - General Family Medicine 02/26/19 documented as of this encounter
--- OUTSIDE RECORDS SUMMARY | 2023-07-27 09:26 | XMS_ITS | Encounter Summary ---
Author Name Unknown Organization [facility] Address [address] [place] [address] Care Team Providers Care Rawhide Bone Roller Name Role Phone Erendira Ann APRN, C.N.P., D.N.P. Primary Care Provider Encounter Details Date Type Department Care Team (Late st Contact Info) Description 03/10/2006 Historical Ophthalmology RST OPH Corinne Newman M.D. [address] [place] [address] Social History Tobacco Use Types [...] were dilated. Mother had patient seen at [facility] the eyes were reactive and had [...] / PLAN #1 Monocular Diplopia No serious INVENTORY CONTROL MANAGER or ocular pathology. Diplopia present still with pinhole. Will likely resolve. Plan: Obtain ORB scan in case 3rd order aberration such as coma. #2 Headache #3 Depression Continue current management with Psych and pain. DIAGNOSIS #1 Monocular Diplopia #2 Headache #3 Depression CDM Reports - EYEGEN Id: [id number] Status: Fnl documented in this encounter Plan of Treatment Not on file documented as of this encounter Visit Diagnoses Not on filedocumented in this encounter Additional Health Concerns Infection Onset Date Last Indicated Resolved Time COVID19 Pending 03/10/2020 03/10/2020 03/10/2020 1 0:24 PM CDT COVID19 Pending 06/11/2021 06/11/2021 06/11/2021 9 :54 AM FORM BUILDING SUPERVISOR COVID19 Pending 09/29/2021 09/29/2021 09/29/2021 3 :58 PM CDT COVID19 Pending 05/02/2022 05/02/2022 05/02/2022 7 :29 PM FORM BUILDING SUPERVISOR Assessment Noted Time PHQ-9 Depression Total Score: 4 10/21/19 06 5:20 PM CDT documented as of this encounter Care Teams Rawhide Bone Roller Relationship Specialty Start Date End Date Erendira Ann APRN, C.N.P., D.N.P. [address] [place] [phone] PCP - General Family Medicine 02/26/19 documented as of this encounter
--- OUTSIDE RECORDS SUMMARY | 2023-07-27 09:26 | XMS_ITS | Referral Summary ---
Author Name Unknown Organization [facility] Address [address] [place] [address] Care Team Providers Care Working Manager Name Role Phone Erendira Ann APRN, C.N.P., D.N.P. Primary Care Provider Source Comments Patient records contain information from all sites at [facility]. For routine questions regarding patient records, call [phone] during business hours, M-F 8:00 AM - 5:00 PM Central Time. Record requests for emergency care only can be directed to [phone] at any time.[facility] Allergies Active Allergy Reactions Criticality Noted Date [...] week 12/29/2021 How often do you attend [facility] or pentecostalism services? 1 to 4 times per year 12/29/2021 Do you belong to any clubs o r organizations such as jew groups, unions, fraternal or athletic groups, or [...] Date Recorded PHQ-2 Score 2 12/29/2021 [facility] of Occupat ional Health - Occupational [...] place to sleep or slept in a penitentiary (including now)? No 12/29/2021 Depression Answer Date [...] Comments Blood Pressure 103/72 05/02/2022 7:30 PM RADIOGRAPHER ANGIOGRAM Pulse 111 05/02/2022 7:30 PM RADIOGRAPHER ANGIOGRAM Temperature 37.8 ??C (100 ??F) 05/02/2022 6:41 PM RADIOGRAPHER ANGIOGRAM Respiratory Rate 11 09/29/2021 8:30 PM CDT Oxygen Saturation 98% 05/02/2022 7:30 PM RADIOGRAPHER ANGIOGRAM Inhaled Oxygen Concentration - - Weight 102 kg (225 lb 8.5 oz) 05/02/2022 6:50 PM RADIOGRAPHER ANGIOGRAM Height 170 cm (5' 6.93) 12/30/2021 8:18 AM CDT Body Mass Index 35.4 12/30/2021 8:18 AM CDT Plan of Treatment Not on file Medical Devices Explanted Type Area Armoured Car Escort Device Identifier Shelf Expiration Date Model / Serial / Lot Intrauterine Device Implanted:Qty: 1 Explanted:Qty: 1 on 03/27/2021 by Arely Hernandez, P.A.-CMercy Intrauterine Device Cervix Description:October of 2016 [facility] ed at [facility] Care Teams Working Manager Relationship Specialty Start Date End Date Erendira Ann APRN, C.N.P., D.N.P. [address] [place] [address] PCP - General Family Medicine 02/26/19
--- OUTSIDE RECORDS SUMMARY | 2023-07-27 09:26 | XMS_ITS | Encounter Summary ---
Author Name Unknown Organization [facility] Address [address] [place] [address] Care Team Providers Care Cutting Pressman Name Role Phone Erendira Ann APRN, C.N.P., D.N.P. Primary Care Provider Encounter Details Date Type Department Care Team (Late st Contact Info) Description 09/30/2020 Orders Only Department of Family Medicine, [facility], in [place], [place] [address] [place] [phone] Erendira Ann APRN, C.N.P., D.N.P. [address] [place] [phone] Social History Tobacco Use Types Packs/Day [...] often do you attend chur ch or muslim services? 1 to 4 times per year 09/29/2020 Do you belong to any clubs o r organizations such as jain groups, unions, fraternal or athletic groups, or [...] Answer Date Recorded PHQ-2 Score 1 09/29/2020 [facility] of Occupat ional Health - Occupational Stress [...] place to sleep or slept in a intermediate (including now)? No 09/29/2020 Depression Answer Date [...] Pending 06/11/2021 06/11/2021 06/11/2021 9 :54 AM INVENTORY AUDITOR COVID19 Pending 09/29/2021 09/29/2021 09/29/2021 3 :58 PM CDT COVID19 Pending 05/02/2022 05/02/2022 05/02/2022 7 :29 PM INVENTORY AUDITOR Assessment Noted Time PHQ-9 Depression Total Score: 6 09/30/19 21 9:57 AM CDT documented as of this encounter Care Teams Cutting Pressman Relationship Specialty Start Date End Date Erendira Ann APRN, C.N.P., D.N.P. [address] [place] [address] PCP - General Family Medicine 02/26/19 documented as of this encounter
--- OUTSIDE RECORDS SUMMARY | 2023-07-27 09:26 | XMS_ITS | Clinical Summary ---
Author Name Unknown Organization [facility] Address [address] [place] [address] Care Team Providers Care Data Processing Systems Project Planner Name Role Phone Erendira Ann APRN, C.N.P., D.N.P. Primary Care Provider Source Comments Patient records contain information from all sites at [facility]. For routine questions regarding patient records, call [phone] during business hours, M-F 8:00 AM - 5:00 PM Central Time. Record requests for emergency care only can be directed to [phone] at any time[address] Allergies Active Allergy Reactions Criticality Noted Date [...] often do you attend chur ch or gnosticism services? 1 to 4 times per year 12/29/2021 Do you belong to any clubs o r organizations such as buddhism groups, unions, fraternal or athletic groups, or [...] Answer Date Recorded PHQ-2 Score 2 12/29/2021 [facility] Occupat [facility] - Occupational Stress Questionnaire Answer Date Recorded [...] place to sleep or slept in a fci (including now)? No 12/29/2021 Depression Answer Date [...] Comments Blood Pressure 103/72 05/02/2022 7:30 PM AUTOMATED MANUFACTURING INSTRUCTOR Pulse 111 05/02/2022 7:30 PM AUTOMATED MANUFACTURING INSTRUCTOR Temperature 37.8 ??C (100 ??F) 05/02/2022 6:41 PM AUTOMATED MANUFACTURING INSTRUCTOR Respiratory Rate 11 09/29/2021 8:30 PM CDT Oxygen Saturation 98% 05/02/2022 7:30 PM AUTOMATED MANUFACTURING INSTRUCTOR Inhaled Oxygen Concentration - - Weight 102 kg (225 lb 8.5 oz) 05/02/2022 6:50 PM AUTOMATED MANUFACTURING INSTRUCTOR Height 170 cm (5' 6.93) 12/30/2021 8:18 [...] Completed 01/04/2020 Medical Devices Explanted Type Area Dowel Sticker Operator Device Identifier Shelf Expiration Date Model / Serial / Lot Intrauterine Device Implanted:Qty: 1 Explanted:Qty: 1 on 03/27/2021 by Arely Hernandez PMercyANasir Intrauterine Device Cervix Description:October of 2016 [facility] ed at [facility] in [facility] Care Teams Data Processing Systems Project Planner Relationship Specialty Start Date End Date Erendira Ann APRN, C.N.P., D.N.P. [address] [place] [address] PCP - General Family Medicine 02/26/19
== END 2023-07-27 09:24 | disposition home or self-care (01) ==
PROVIDERS: PCP Family Medicine; Visit Provider Obstetrics & Gynecology
DX: O26.899 Other specified pregnancy related conditions, unspecified trimester (principal); Z67.91 Unspecified blood type, Rh negative
CPT/HCPCS: 86592; 86850; J2791

== ENCOUNTER 2023-08-10 14:36 | Outpatient (CLI) | payer OTHER, SELFPAY | END 2023-08-10 14:37 | disposition home or self-care (01) | PROVIDERS: PCP Family Medicine; Visit Provider Obstetrics & Gynecology | DX: O16.3 Unspecified maternal hypertension, third trimester (principal) | CPT/HCPCS: 82565; 82570; 84156; 84450; 84460; 84520 ==

== ENCOUNTER 2023-08-11 13:27 | Outpatient (CLI) | payer OTHER, SELFPAY ==
[2023-08-15 07:41] LABS: Creatinine Urine 24.8 mg/dL; Total Protein Urine 14 mg/dL
[2023-08-15 07:43] LABS: Collection Time Urine 24 Hours; Total Volume 24 Hour Urine 5400 ml; Urine Creatinine mg/24 Hour 0 mg/Day
== END 2023-08-11 13:28 | disposition home or self-care (01) ==
LOC: NFLDREF 13:28
PROVIDERS: PCP Family Medicine; Visit Provider Obstetrics & Gynecology
DX: O12.10 Gestational proteinuria, unspecified trimester (principal)
CPT/HCPCS: 82570; 84156

== ENCOUNTER 2023-08-23 08:15 | Outpatient (RCR) | payer OTHER, SELFPAY | END 2023-12-21 23:59 | disposition home or self-care (01) | PROVIDERS: PCP Family Medicine; Visit Provider Orthopaedic Surgery | DX: M79.89 Other specified soft tissue disorders (principal); M65.342 Trigger finger, left ring finger; Z51.89 Encounter for other specified aftercare | CPT/HCPCS: 97035; 97140; 97165; L3933 ==

== ENCOUNTER 2023-08-29 10:21 | Outpatient (CLI) | payer OTHER, SELFPAY ==
[2023-08-29 10:56] VITALS: BP 129/75; PULSE 112; TEMP 37.3
[2023-08-29 10:57] VITALS: PULSE 109; RESP 16; TEMP 37.3
[2023-08-29 10:59] VITALS: PULSE 111; O2SAT 98
[2023-08-29 11:08] VITALS: BP 119/70; PULSE 110
[2023-08-29 11:18] VITALS: BP 117/71; PULSE 111
[2023-08-29 11:30] VITALS: BP 128/72; PULSE 105
--- NOTE | 2023-08-29 11:47 | PC.OBNST ---
The provider's electronic signature indicates the NST is reactive/appropriate for gestational age. *Note to provider: If an addendum is required, open the patient's chart and click on the note under the Nurse/Allied Health tab.
== END 2023-08-29 11:40 | disposition home or self-care (01) ==
LOC: OB OUT 10:22 → OB 10:24
PROVIDERS: PCP Family Medicine; Visit Provider Obstetrics & Gynecology
DX: Z39.1 Encounter for care and examination of lactating mother (principal)
CPT/HCPCS: 59025; G0463

== ENCOUNTER 2023-09-21 08:13 | Outpatient (CLI) | payer OTHER, SELFPAY ==
[2023-09-22 13:29] LABS: Strep B DNA Probe Negative (Negative)
[2023-09-22 14:10] LABS: Strep B Susceptibility Needed? No
== END 2023-09-21 08:14 | disposition home or self-care (01) ==
LOC: NFLDREF 08:18
PROVIDERS: PCP Family Medicine; Visit Provider Obstetrics & Gynecology
DX: Z34.03 Encounter for supervision of normal first pregnancy, third trimester (principal)
CPT/HCPCS: 87081; 87653

== ENCOUNTER 2023-10-12 09:51 | Inpatient (IN) | payer OTHER, SELFPAY ==
[2023-10-12] VITALS (14 sets, daily range): BP systolic 125–144; BP diastolic 65–86; PULSE 62–92; RESP 16–18; TEMP 36.6–37.2; O2SAT 97–98; BMI 42.4
[2023-10-12 10:31] LABS: Hematocrit 36.9 % (33.0-51.0); Hemoglobin* 12.8 gm/dL (12.0-16.0); Mean Corpuscular HGB Conc 35 gm/dL (32-36); Mean Corpuscular Hemoglobin 30 pg (26-34); Mean Corpuscular Volume 85 fL (80-100); Platelet Count* 243 K/uL (140-440); Red Blood Count 4.33 m/uL (4.00-5.20); White Blood Count* 11.11 K/uL (4.50-11.00)
[2023-10-12 10:33] LABS: Slide Review Reflex No
[2023-10-12 10:37] LABS: Alanine Aminotransferase* 20 U/L (4-35); Aspartate Amino Transferase* 48 U/L (12-35); Creatinine* 0.5 mg/dL (0.5-1.5); Estimated Glomerular Filt Rate 129 ml/min
[2023-10-12 10:38] LABS: Blood Urea Nitrogen* 9 mg/dL (5-24)
--- NOTE | 2023-10-12 11:01 | PM.OBHPLI ---
OB - H&P: HPI Labor/Induction History of Present Illness Time Seen by Provider: 11:00 Date Seen: 10/12/23 Chief Complaint: Janet is a 33yo at 39w0d GA admitted for IOL in the setting of preeclampsia without severe features. She was seen in clinic today for routine visit, where she had two mild range BPs. She had an isolated elevated BP earlier in , now meeting criteria for HTN disorder of . Of note, she had baseline significant proteinuria of unclear etiology and is s/p Nephrology consult. is otherwise complicated by asthma, obesity and Rh negative status. Janet is feeling well today. Denies headache, vision changes, RUQ pain, dyspnea. She denies any regular/painful contractions, vaginal bleeding or leaking of fluids. Endorses active movement. 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 -Elevated BP at 30 weeks: 140/78. Repeat high-normal at 122/88. -Baseline preeclampsia labs normal, aside from protein:creatinine = 0.4. -24 hour urine: 756 mg protein in *5400 cc* of urine -Neph consult placed, likely evolving preE but indicated to rule out alternative condition.[x] f/u neph note: Reviewed, f/u . # BMI 34. -Encouraged baby aspirin at 12 weeks r/t prime/BMI # Anxiety & Depression, (Including previous hx of suicidal ideation and panic attacks) -Has tried a number of medications including prozac and escitalopram. -Effexor prescribed but not started # Asthma - Inhaler use spring 2022 # Hx of Left hip surgery (repair of L labrum), care w/ positioning in labor # [id number] rapid drug metabolizer; has required more anesthetic during procedures # RH negative: Rhogam given 07/27/2023 # 02 sat in clinic at 24 weeks: -91-93% completely asymptomatic. -Sleep study negative to also evaluate for chronic fatigue Pap due PP COVID: initial series completed, boosted x2 Flu: completed elsewhere per pt report TDAP: 08/10/23 32wk Mental Health: PHQ9: 12, GAD7: 13. No acute mood concerns. 34wk Hgb: 11.6 H&P: [place] on 09/27 Meds Home Medications and Allergies Home Medications Medication Instructions Recorded Confirmed Type vits no.126-ferrous fum 1 tab PO DAILY 03/15/23 10/12/23 History 28 mg iron-folic acid 800 mcg tablet (Classic ) aspirin 81 mg tablet,delayed 81 mg PO QDAY 04/12/23 10/12/23 History release (Fabiano Low Dose Aspirin) Allergies Allergy/AdvReac Type Severity Reaction Status Date / Time oxycodone Allergy Severe Vomiting Verified 10/12/23 09:16 azithromycin Allergy GI Verified 10/12/23 09:16 walnut Allergy Verified 10/12/23 09:16 escitalopram [From Lexapro] AdvReac Intermediate Dizziness Verified 10/12/23 09:16 OB - H&P: Exam Physical Exam: Vital signs: Temp Pulse Resp BP Pulse Ox 98.8 F 80 16 131/70 98 10/12/23 10:29 10/12/23 10:29 10/12/23 10:29 10/12/23 10:29 10/12/23 10:30 Narrative: General: Alert and oriented, in no acute distress Heart: Regular rate and rhythm, no rubs/murmurs or gallops Lungs: Clear to posterior auscultation. No wheezes, rales or crackles. Abdomen: Gravid. Cephalic presentation by Saul's. Cervix: Fingertip, 50%, -1 Extremities: Patellar reflexes 2+ bilaterally, 3+ pitting edema OB - Results Labs Labs: Short CBC 10/12/23 Range/Units 10:15 WBC 11.11 H (4.50-11.00) K/uL Hgb 12.8 (12.0-16.0) gm/dL Hct 36.9 (33.0-51.0) % Plt Count 243 (140-440) K/uL BMP 10/12/23 10:15 BUN 9 Creatinine 0.5 Liver Function 10/12/23 Range/Units 10:15 AST 48 H (12-35) U/L ALT 20 (4-35) U/L OB - Problem Based A/P Additional Plan (1) Preeclampsia: Status: Acute Plan Janet is a 33yo at 39w0d GA admitted for IOL in the setting of preeclampsia without severe features. is otherwise complicated by baseline proteinuria, asthma, obesity and Rh negative status. We discussed the diagnosis of preeclampsia with severe features, where delivery is recommended at/beyond 37 weeks. Initial preE labs are within normal limits, aside from mild transaminitis. Plan to trend this. Discussed severe features including unrelenting headache, vision changes, RUQ pain, severe range BPs or significant lab abnormalities where we would add magnesium suflate if needed. All questions answered. Discussed risks of preeclampsia including maternal/ worsening condition, growth restriction, delivery. - Cervix is FT/50-1, plan to start IOL with cytotec with likely plan to proceed with cook catheter placement on subsequent check for further cervical ripening. - Diligent BP monitoring ongoing - Repeat preE labs in 6 hours, then reassess frequency pending trend - Strict I/Os - BT O negative, plan cord blood at time of delivery - GBS negative
[2023-10-12 11:20] LABS: Total Protein Urine 9 mg/dL
[2023-10-12 11:21] LABS: Creatinine Urine 21.6 mg/dL
[2023-10-12] MEDS: miSOPROStoL 25 MCG/0.25 TABLET VAGINAL (12:50)
[2023-10-12 16:12] LABS: Hematocrit 34.7 % (33.0-51.0); Hemoglobin* 11.9 gm/dL (12.0-16.0); Mean Corpuscular HGB Conc 34 gm/dL (32-36); Mean Corpuscular Hemoglobin 29 pg (26-34); Mean Corpuscular Volume 86 fL (80-100); Platelet Count* 216 K/uL (140-440); Red Blood Count 4.05 m/uL (4.00-5.20); White Blood Count* 10.64 K/uL (4.50-11.00)
[2023-10-12 16:14] LABS: Slide Review Reflex No
[2023-10-12 16:26] LABS: Alanine Aminotransferase* 17 U/L (4-35); Aspartate Amino Transferase* 34 U/L (12-35); Blood Urea Nitrogen* 9 mg/dL (5-24); Creatinine* 0.6 mg/dL (0.5-1.5); Est. Creatinine Clearance* 127.18; Estimated Glomerular Filt Rate 123 ml/min
[2023-10-12] MEDS: MORPHINE 10 MG/ML inj IM (18:05)
[2023-10-12] MEDS: ONDANSETRON 2 MG/ML inj 4 MG IV ×2 (18:18→21:47)
[2023-10-12] MEDS: LACTATED RINGERS 1000 ML 1,000 ML 125 ML IV (21:07)
[2023-10-12] MEDS: OXYTOCIN 30 unit/500 ML in NS 30 UNIT/500 ML BAG IVPB (21:07)
[2023-10-12] MEDS: hydrOXYzine pamoate 25 MG CAPSULE 100 MG PO (21:48)
[2023-10-13] VITALS (34 sets, daily range): BP systolic 114–148; BP diastolic 55–80; PULSE 75–101; RESP 12–18; TEMP 36.8–37.6; O2SAT 97–98
[2023-10-13] MEDS: LACTATED RINGERS 1000 ML 1,000 ML 125 ML IV ×3 (05:01→23:12)
[2023-10-13 06:17] LABS: Hematocrit 34.7 % (33.0-51.0); Mean Corpuscular HGB Conc 35 gm/dL (32-36); Mean Corpuscular Hemoglobin 30 pg (26-34); Mean Corpuscular Volume 86 fL (80-100); Platelet Count* 216 K/uL (140-440); Red Blood Count 4.05 m/uL (4.00-5.20); White Blood Count* 13.79 K/uL (4.50-11.00)
[2023-10-13 06:20] LABS: Slide Review Reflex No
[2023-10-13 06:30] LABS: Alanine Aminotransferase* 18 U/L (4-35); Aspartate Amino Transferase* 30 U/L (12-35); Blood Urea Nitrogen* 10 mg/dL (5-24); Creatinine* 0.6 mg/dL (0.5-1.5); Est. Creatinine Clearance* 127.18; Estimated Glomerular Filt Rate 123 ml/min
--- NOTE | 2023-10-13 08:54 | PM.OBPNL ---
Subjective Time Seen by Provider: 08:54 Date Seen: 10/13/23 Narrative: Okay Objective Vital Signs: Last Vital Signs Temp 98.4 F 10/13/23 06:17 Pulse 96 10/13/23 08:17 Resp 12 10/13/23 06:17 BP 121/60 10/13/23 08:17 Pulse Ox 97 10/12/23 11:51 Pelvic Exam Dilation (cm): 4 Effacement (%): 60 Station: High/ballotable Contractions Monitor mode: External Contraction pattern: Irregular Contraction intensity: Mild Pitocin Rate (mU/min): 10 Assessment Assessment: induction ongoing Station: -4 Status: Category ll Heart Rate Baseline: 140 Half-[address] Variability: Moderate (6-25) Monitor Accelerations: Present Monitor Decelerations: Late (One late like deceleration while checking cervix. Otherwise tracing had remained category 1. ) Maternal Status: Stable. Plan Plan: 1. Continue to titrate IV Oxytocin, will re check cervix in 3-4 hours and attempt AROM at that time. 2. Close monitoring of vital signs, MAT MAKING MACHINE TENDER irritability symptoms. Admission labs w/o evidence of severity, will order new labs only of there is significant clinical changes such as MAT MAKING MACHINE TENDER irritability symptoms, severely elevated blood pressures etc... 3. Planning an epidural. 4. Continuous monitoring.
--- NOTE | 2023-10-13 13:40 | PM.OBPNL ---
Subjective Time Seen by Provider: 12:00 Date Seen: 10/13/23 Narrative: Okay Objective Vital Signs: Last Vital Signs Temp 98.9 F 10/13/23 12:20 Pulse 80 10/13/23 13:04 Resp 16 10/13/23 12:20 BP 114/62 10/13/23 13:04 Pulse Ox 97 10/12/23 11:51 Pelvic Exam Dilation (cm): 4 Effacement (%): 60 Station: High/ballotable Contractions Monitor mode: External Contraction pattern: Regular Contraction intensity: Strong/Firm Pitocin Rate (mU/min): 15 Assessment Assessment: induction ongoing Station: -2 Amniotic Membrane Status: AROM (Clear fluid) Status: Category l Heart Rate Baseline: 140 Telecommunications Support Variability: Moderate (6-25) Monitor Accelerations: Present Monitor Decelerations: None (One late like deceleration while checking cervix. Otherwise tracing had remained category 1. ) Maternal Status: Stable Plan Plan: AROM at noon. Patient will want epidural soon. Will reevaluate in 3-4 hours.
[2023-10-13] MEDS: LACTATED RINGERS 1000 ML 1,000 ML 115 ML IV (13:42)
[2023-10-13] MEDS: CALCIUM CARBONATE 500 MG CHEW PO (19:32)
[2023-10-13] MEDS: CLINDAMYCIN 900 MG/50 ML-D5W 900 MG/50 ML PIGGYBACK 100 MG IVPB (21:10)
[2023-10-13] MEDS: LACTATED RINGERS 1000 ML 1,000 ML 1200 ML IV (21:18)
[2023-10-13 21:19] LABS: Hemoglobin* 11.6 gm/dL (12.0-16.0)
--- NOTE | 2023-10-13 21:30 | PM.OBPNL ---
Subjective Time Seen by Provider: 21:30 Date Seen: 10/13/23 Narrative: Okay Objective Vital Signs: Last Vital Signs Temp 98.6 F 10/13/23 19:38 Pulse 86 10/13/23 21:09 Resp 18 10/13/23 19:38 BP 148/70 H 10/13/23 21:09 Pulse Ox 98 10/13/23 19:04 Pelvic Exam Dilation (cm): 6-7 Effacement (%): 80 Station: -2 Contractions Monitor mode: External Contraction pattern: Regular Contraction intensity: Strong/Firm Pitocin Rate (mU/min): 0 Assessment Assessment: induction ongoing Station: -2 Amniotic Membrane Status: AROM (Clear fluid) Status: Category l Heart Rate Baseline: 140 Linoleum Tile Floor Layer Variability: Moderate (6-25) Monitor Accelerations: Present Monitor Decelerations: None (One late like deceleration while checking cervix. Otherwise tracing had remained category 1. ) Labor Progress: 6-7 cm since about 4:30pm. At this time my biggest concern is that even after AROM station has not changed at all. Nurse had trouble monitoring uterine contractions and recommended placement of IUPC. This showed MVUs less than 200 and Oxytocin rate increased. IUPC eventually fell out. Nurse and patient wanted to try a break off Oxytocin and to try position changes. I re checked cervix at around 8:30pm and same cervical dilation NO change on station. Plan Plan: At this time I discussed with patient my recommendation to proceed with delivery. She has been on Oxytocin for close to 24 hours. She has been on the active phase of labor now for more than 4 hours, ruptured and with symptomatic uterine contractions. She has been ambulating and trying to manage contractions w/o epidural to help descent. We have attempted an Oxytocin break, position changes. station has not changed at all since AROM. There is molding of head also noted. I discussed my concerns that baby is too big. Discussed that since baby and her are stable that we could try to restart oxytocin and try some additional position changes if she desired and as long as there was no sign of infection or distress. Patient and had some time to discuss and decided to proceed with delivery at this time. We reviewed how delivery is performed, family centered , risks of surgery such as bleeding and needing a blood transfusion, infection, damage to nearby organs, blood clots. Discussed interventions to decrease these risks. Discussed how recovery looks like after and how it is different from a vaginal delivery etc... Informed consent signed by patient. Will proceed with section at this time.
[2023-10-13] MEDS: CEFAZOLIN 1 GM inj 3 GM IVP (21:45)
[2023-10-13] MEDS: miSOPROStoL 800 MCG/4 TABLET PR (22:26)
[2023-10-13] MEDS: KETOROLAC 30 MG/ML inj IVP (23:04)
--- NOTE | 2023-10-13 23:15 | P.OBPRC_ITS ---
OB Delivery Proc Additional Procedures Tubal Ligation at the time of : No Other: No Procedure Time Seen by Provider: 23:15 Date of procedure: 10/13/23 Pre-op diagnosis: Preeclampsia without severe features, failed induction of labor, arrest of dilation Post-op diagnosis: same ( hemorrhage due to uterine atony and bleeding uterine vessels) Procedure Done: Global Will [facility] bill your pro fee for this procedure?: Yes Blood Loss Measurement Type: QBL (1972) Bakri Used: No IV fluids (mL): 1,500 Urine Output (mL): 400 Urine Output Comment: Urine clear Surgeon: Luis Avila MD Controller Mechanic: None Anesthesia Type: Spinal Findings: FINDINGS: Live-born male , vertex ROT presentation, Apgars 8 and 9 at 1 and 5 minutes respectively. weight 8 lb 0 oz. Sigmoid epiploica with thin adhesions to the left round ligament. Hysterotomy extension to the left uterine artery and anterior leaf of the left broad ligament. Grossly normal bilateral fallopian tubes and ovaries. Procedure Name: Primary low transverse section Procedure Description: PROCEDURE: After obtaining informed consent, the patient was taken to the operating room where spinal anesthesia was obtained and found to be adequate. She was prepared and draped in the normal sterile fashion in the dorsal supine position with a leftward tilt. A Pfannenstiel skin incision was made with a scalpel about 2 cm above symphysis pubic bone, 12-14 cm in length. This incision was carried down to the underlying layer of fascia with the Bovie and scalpel. The fascia was incised in the midline and the incision extended laterally. The rectus muscles were then in the midline. The Billy O retractor was then placed into the incision. The lower uterine segment was then incised in a transverse fashion with the scalpel. Upon entry into the uterus, clear amniotic fluid was noted. The uterine incision was extended cephalo caudally with blunt finger fractionation. The infant's head was delivered atraumatically, followed by the remainder of the infant's body. The nose and mouth were suctioned with the bulb suction. The cord was doubly clamped and cut , after 30 seconds of delayed cord clamping and the infant was handed off the field for evaluation. The cord was doubly clamped and cut, and the infant was handed off the field to warmer for evaluation. The placenta was delivered spontaneously with umbilical cord traction and fundal massage. The uterus was cleared of all clots and debris. Bleeding uterine vessels from the left corner of incision noted to be bleeding and clamped with ring forceps. Vicryl 0 utilized to attempt a deep suture and coagulate bleeding uterine vessel. This decreased evident bleeding but created a hematoma beneath t he serosal layer of the lower uterine segment on the left side, this looked to be expanding and pressure placed over this area which created an opening on the surface with subsequent heavy bleeding. Multiple figure of 8 sutures attempted in this area to coagulate bleeding vessels unsuccessfully. The uterus was exteriorized and an Juni stitch was made on the left uterine vessel making sure that no intestine or ureteral structure was identified in the proximity and this significantly decreased bleeding. The uterus was replaced in the abdomen and the uterine incision was reapproximated in a running locking fashion with a 0 Vicryl suture. A 2nd layer of the same suture was used to imbricate in horizontal fashion. Chromic 2-0 was utilized to approximate the disrupted serosal layer over the left uterine artery and myometrium, this allowed for further assurance of hemostasis. This area was evaluated on multiple occasions, Kings was also utilized to help secure hemostasis. The posterior and anterior leaf of the left round ligament was thoroughly evaluated and no evidence of hematoma identified. Upon closure of hysterotomy, uterine atony identified and treated with 800mcg of rectal Cytotec, IV Oxytocin 30 units, 1 dose of IM Hemabate. I had asked anesthesia to give 1 dose of 1g TXA after cord clamp as well. The anterior peritoneum was reapproximated in a running fashion with a 3-0 Vicryl suture. The subfascial tissues were carefully inspected and hemostasis assured, Kings placed due to small oozing vessels, this allowed further hemostasis to be secured. The fascia was reapproximated in a running fashion with a looped 0 Vicryl suture. The subcutaneous tissues were copiously irrigated. Hemostasis was assured. The subcutaneous fat layer was reapproximated with interrupted sutures of 3-0 Vicryl. The skin was closed in a subcuticular fashion with 4-0 Monocryl. LiquiBand and dressing were applied. The patient tolerated the procedure well. Sponge, lap, needle, and instrument counts were reported as correct x2. The patient was taken to the recovery room, awake, and in stable condition. She did receive 3 grams of IV Ancef and 900mg of IV Clindamycin due to Azithromycin allergy preoperatively. CBC, CMP, coagulation parameters collected at OR will f/u closely. A second dose of 1g of TXA was given at the OR 1 hour after first dose. Complications: hemorrhage Pathology: specimen obtained, sent to pathology (Placenta) Surgery Debrief Performed: Yes Condition: stable Disposition: floor Infant total score - 1 minute: 8 total score - 5 minute: 9
[2023-10-13 23:16] LABS: Basophils Percent Auto 0.2 % (0.0-3.0); Eosinophils Percent Auto 0.5 % (0.0-7.0); Hematocrit 33.1 % (33.0-51.0); Hemoglobin* 11.2 gm/dL (12.0-16.0); Immature Granulocytes Pct Auto 1.8 %; Lymphocytes Percent Auto 12.5 % (20-44); Mean Corpuscular HGB Conc 34 gm/dL (32-36); Mean Corpuscular Hemoglobin 29 pg (26-34); Mean Corpuscular Volume 86 fL (80-100); Platelet Count* 213 K/uL (140-440); RDW Coefficient of Variation % 15.4 % (11.5-15.5); Red Blood Count 3.83 m/uL (4.00-5.20); White Blood Count* 18.19 K/uL (4.50-11.00)
[2023-10-13 23:19] LABS: Slide Review Reflex No
[2023-10-13 23:22] LABS: Albumin* 2.9 g/dL (3.3-5.0); Chloride* 110 mmol/L (96-114); Potassium* 3.7 mmol/L (3.6-5.1); Sodium* 134 mmol/L (135-149)
[2023-10-13 23:25] LABS: Alanine Aminotransferase* 20 U/L (4-35); Alkaline Phosphatase* 163 U/L (40-150); Anion Gap 3 mEq/L (7-15); Aspartate Amino Transferase* 36 U/L (12-35); Bilirubin Total* 1.1 mg/dL (0.1-1.5); Blood Urea Nitrogen* 10 mg/dL (5-24); Carbon Dioxide* 21 mmol/L (20-32); Creatinine* 0.6 mg/dL (0.5-1.5); Est. Creatinine Clearance* 127.18; Estimated Glomerular Filt Rate 123 ml/min; Glucose* 93 mg/dL (60-115); Partial Thromboplastin Time* 30 Seconds (23-33); Total Protein* 5.6 g/dL (6.0-8.3)
[2023-10-13 23:26] LABS: Calcium* 9.1 mg/dL (8.4-10.6)
[2023-10-13 23:28] LABS: Fibrinogen* 397 mg/dL (200-450)
[2023-10-14] VITALS (37 sets, daily range): BP systolic 96–129; BP diastolic 50–100; PULSE 79–105; RESP 16–20; TEMP 36.4–37.2; O2SAT 96–100
--- NOTE | 2023-10-14 00:21 | W.ANESCHARGE ---
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
--- NOTE | 2023-10-14 00:22 | P.NB_ITS ---
Nerve Block Nerve Block Time Seen by Provider: 23:30 Date Seen: 10/13/23 Type of block requested by surgeon for post-operative analgesia: TAP Side: bilateral Time out performed: Yes Verification of patient name: Yes Verification of date of : Yes Site marking: not applicable Name of person performing procedure: Goddard M Continuous monitoring Was continuous monitoring of O2 sat, B/P, sticker operator, recorded every 15 minutes?: Yes Procedure Checklist: sterile prep, needles and gloves Ultrasound guided. Images saved: Yes Medications given in 5ml increments after negative aspiration: Marcaine %: 0.25 mL: 30 Needle gauge: 20 and Exparel mL: 10 Patient tolerated procedure well: Yes Block Charges Block Charge (with Pro Fee): TAP Bilateral Use of Ultrasound Machine for Block: Yes- US Guidance/pain block
[2023-10-14] MEDS: LACTATED RINGERS 1000 ML 1,000 ML 125 ML IV (02:42)
[2023-10-14 03:57] LABS: Rapid Plasma Reagin (RPR) Non Reactive (Non Reactive)
[2023-10-14] MEDS: KETOROLAC 30 MG/ML inj IVP ×4 (05:04→23:14)
[2023-10-14 06:03] LABS: Basophils Percent Auto 0.1 % (0.0-3.0); Eosinophils Percent Auto 0.1 % (0.0-7.0); Hematocrit 28.2 % (33.0-51.0); Hemoglobin* 9.7 gm/dL (12.0-16.0); Immature Granulocytes Pct Auto 0.6 %; Lymphocytes Percent Auto 8.3 % (20-44); Mean Corpuscular HGB Conc 34 gm/dL (32-36); Mean Corpuscular Hemoglobin 30 pg (26-34); Mean Corpuscular Volume 86 fL (80-100); Monocytes Percent Auto 3.2 % (0.0-11.0); Neutrophils Percent Auto 87.7 % (42.0-72.0); Platelet Count* 229 K/uL (140-440); RDW Coefficient of Variation % 15.6 % (11.5-15.5); Red Blood Count 3.27 m/uL (4.00-5.20); White Blood Count* 23.52 K/uL (4.50-11.00)
[2023-10-14 06:04] LABS: Slide Review Reflex No
[2023-10-14 06:16] LABS: Alanine Aminotransferase* 31 U/L (4-35); Aspartate Amino Transferase* 57 U/L (12-35); Blood Urea Nitrogen* 11 mg/dL (5-24); Creatinine* 0.6 mg/dL (0.5-1.5); Est. Creatinine Clearance* 127.18; Estimated Glomerular Filt Rate 123 ml/min
--- NOTE | 2023-10-14 08:06 | P.OBPN_ITS ---
OB - PN:Subj Subjective Date Seen: 10/14/23 Patient comments OB post-: no complaints, pain well controlled, tolerating diet and flatus present [place] status: and doing well [place] feeding status: exclusively Narrative: The patient feels well.? Her pain is well controlled with current medications.?She states that she vomits if she takes oxycodone so will want to make a different plan of ibuprofen and Tylenol are not adequate for controlling her pain. encouraged her to take ibuprofen and Tylenol routinely. She has no new complaints.? Urinary output is adequate and she has a Helton catheter in at this time. It will be removed today after she ambulates.? Has a good appetite, is tolerating a general diet, is passing a small amount flatus, and has not had a bowel movement.?Encouraged to let the RN know if this stops or doesn't increase. Has scant amount of rubra lochia.? She has not yet ambulated but will plan to this morning. She is and feels that it is going very well so far. Her blood pressures have been normal. ? OB - PN: Obj Exam Physical Exam: Vital signs: Temp Pulse Resp BP Pulse Ox O2 Del Method 98.5 F 92 18 110/71 96 Room Air 10/14/23 05:00 10/14/23 05:00 10/14/23 06:24 10/14/23 05:00 10/14/23 05:00 10/14/23 05:00 Narrative: GENERAL APPEARANCE:? normal affect, alert, no distress? MOOD:? appropriate? CHEST:? clear to auscultation and percussion? HEART:? regular rate and rhythm? ABDOMEN:? soft, non-tender the uterine fundus is U/1 and is appropriate for the stage of recovery. Incision dressing is clean, dry and intact.? EXTREMITIES:? normal and no edema? Urinary Catheter Management: Helton: Cath placed during this visit: yes Urethral indwelling: Yes Reason for continuing: surgical procedure Insertion date: 10/13/23 Insertion time: 21:40 OB - PN: Obj Data Labs Labs: Laboratory Results - last 24 hr 10/12/23 10/13/23 10/13/23 10:15 21:16 23:05 WBC 18.19 H RBC 3.83 L Hgb 11.6 L 11.2 L Hct 33.1 MCV 86 MCH 29 MCHC 34 RDW Coeff of Christina 15.4 Plt Count 213 Neut % (Auto) 81.0 H Lymph % (Auto) 12.5 L [place] % (Auto) 4.0 Eos % (Auto) 0.5 Baso % (Auto) 0.2 Neut # (Auto) 14.70 H Lymph # (Auto) 2.30 [place] # (Auto) 0.70 Eos # (Auto) 0.10 Baso # (Auto) 0.00 Abs Immat Gran (auto) 0.30 Imm/Tot Granulo (auto) 1.8 APTT 30 Fibrinogen 397 Sodium 134 L Potassium 3.7 Chloride 110 Carbon Dioxide 21 Anion Gap 3 L BUN 10 Creatinine 0.6 Estimated Creat Clear 127.18 Estimated GFR 123 Glucose 93 Calcium 9.1 Total Bilirubin 1.1 AST 36 H ALT 20 Alkaline Phosphatase 163 H Total Protein 5.6 L Albumin 2.9 L RPR Screen Non Reactive Blood Type O Negative Antibody Screen NEGATIVE Antibody Identification No Antibodies Found by ARC 10/14/23 05:47 WBC 23.52 H RBC 3.27 L Hgb 9.7 L Hct 28.2 L MCV 86 MCH 30 MCHC 34 RDW Coeff of Christina 15.6 H Plt Count 229 Neut % (Auto) 87.7 H Lymph % (Auto) 8.3 L [place] % (Auto) 3.2 Eos % (Auto) 0.1 Baso % (Auto) 0.1 Neut # (Auto) 20.60 H Lymph # (Auto) 2.00 [place] # (Auto) 0.80 Eos # (Auto) 0.00 Baso # (Auto) 0.00 Abs Immat Gran (auto) 0.10 Imm/Tot Granulo (auto) 0.6 APTT Fibrinogen Sodium Potassium Chloride Carbon Dioxide Anion Gap BUN 11 Creatinine 0.6 Estimated Creat Clear 127.18 Estimated GFR 123 Glucose Calcium Total Bilirubin AST 57 H ALT 31 Alkaline Phosphatase Total Protein Albumin RPR Screen Blood Type Antibody Screen Antibody Identification OB - PN: A/P Delivery Assessment and Plan (1) Preeclampsia: Status: Acute (2) Proteinuria: Status: Acute (3) Lactating mother: Status: Acute (4) care following delivery: Status: Acute Plan day: 1 Plan: routine care Comments: Anticipate discharge home tomorrow of the following day per patient preference.
[2023-10-14] MEDS: FERROUS SULFATE 325 MG TABLET PO (10:52)
[2023-10-14] MEDS: DOCUSATE SODIUM 100 MG CAPSULE PO (10:53)
[2023-10-14] MEDS: ENOXAPARIN 40 MG/0.4 ML INJ SUBCUT ×2 (10:54→23:37)
[2023-10-14] MEDS: ACETAMINOPHEN 500 MG TABLET 1000 MG PO (14:58)
[2023-10-14] MEDS: SODIUM CHLORIDE 0.9 % (FLUSH) 10 ML SYRINGE IVF (23:14)
[2023-10-15 03:03] VITALS: BP 96/63; PULSE 103; RESP 18; TEMP 36.7
[2023-10-15] MEDS: ACETAMINOPHEN 500 MG TABLET 1000 MG PO ×3 (04:02→20:27)
[2023-10-15 05:47] LABS: Hematocrit 25.4 % (33.0-51.0); Hemoglobin* 8.5 gm/dL (12.0-16.0); Mean Corpuscular HGB Conc 34 gm/dL (32-36); Mean Corpuscular Hemoglobin 30 pg (26-34); Mean Corpuscular Volume 88 fL (80-100); Platelet Count* 186 K/uL (140-440); Red Blood Count 2.88 m/uL (4.00-5.20); White Blood Count* 12.68 K/uL (4.50-11.00)
[2023-10-15 05:48] LABS: Slide Review Reflex No
[2023-10-15 05:57] LABS: Alanine Aminotransferase* 23 U/L (4-35); Aspartate Amino Transferase* 42 U/L (12-35); Blood Urea Nitrogen* 18 mg/dL (5-24); Creatinine* 0.6 mg/dL (0.5-1.5); Est. Creatinine Clearance* 127.18; Estimated Glomerular Filt Rate 123 ml/min
[2023-10-15] MEDS: KETOROLAC 30 MG/ML inj IVP (06:19)
[2023-10-15 09:15] VITALS: BP 101/64; PULSE 95; RESP 18; TEMP 36.5; O2SAT 97
[2023-10-15] MEDS: DOCUSATE SODIUM 100 MG CAPSULE PO (09:17)
[2023-10-15] MEDS: FERROUS SULFATE 325 MG TABLET PO (09:18)
[2023-10-15] MEDS: ENOXAPARIN 40 MG/0.4 ML INJ SUBCUT ×2 (11:10→22:57)
[2023-10-15] MEDS: IBUPROFEN 600 MG TABLET PO ×3 (11:10→22:56)
--- NOTE | 2023-10-15 11:12 | PM.OBPNVD1 ---
OB - PN:Subj Subjective Time Seen by Provider: 10:45 Date Seen: 10/15/23 Patient comments OB post-: pain well controlled, tolerating diet and flatus present status: Narrative: The patient feels well.? Her pain is well controlled with Tylenol and Toradol, and she will be switching to ibuprofen with the next NSAID dose.?She has no new complaints.? Helton catheter was removed yesterday and her urine output is normal. Has a good appetite, is tolerating a general diet, is passing a small amount flatus, and has not had a bowel movement.?Has scant amount of rubra lochia.? She is ambulating without difficulty. She is and feels that it is going very well so far. Her infant is under bili lights. ? OB - PN: Obj Exam Physical Exam: Vital signs: Temp Pulse Resp BP Pulse Ox O2 Del Method 97.7 F 95 18 101/64 97 Room Air 10/15/23 09:15 10/15/23 09:15 10/15/23 09:15 10/15/23 09:15 10/15/23 09:15 10/15/23 09:15 Narrative: GENERAL APPEARANCE:? normal affect, alert, no distress? MOOD:? appropriate? CHEST:? clear to auscultation and percussion? HEART:? regular rate and rhythm? ABDOMEN:? soft, non-tender the uterine fundus is U/2 and is appropriate for the stage of recovery. Incision is clean, dry and intact.? EXTREMITIES:? normal and trace edema? Urinary Catheter Management: Helton: Cath placed during this visit: yes Urethral indwelling: Yes Reason for continuing: surgical procedure Insertion date: 10/13/23 Insertion time: 21:40 OB - PN: Obj Data Labs Labs: Laboratory Results - last 24 hr 10/15/23 05:30 WBC 12.68 H RBC 2.88 L Hgb 8.5 L Hct 25.4 L MCV 88 MCH 30 MCHC 34 Plt Count 186 BUN 18 Creatinine 0.6 Estimated Creat Clear 127.18 Estimated GFR 123 AST 42 H ALT 23 OB - PN: A/P Delivery Assessment and Plan (1) Preeclampsia: Status: Acute (2) Proteinuria: Status: Acute (3) Lactating mother: Status: Acute (4) care following delivery: Status: Acute Plan day: 2 Plan: routine care Comments: I anticipate that she should be ready for discharge tomorrow.
[2023-10-15 12:30] VITALS: BP 103/66; PULSE 110; RESP 18; TEMP 37; O2SAT 97
[2023-10-15 16:15] VITALS: BP 113/73; PULSE 98; RESP 18; TEMP 36.7; O2SAT 97
[2023-10-15 20:21] VITALS: BP 117/72; PULSE 100; RESP 17; TEMP 36.7; O2SAT 97
[2023-10-16 02:30] VITALS: BP 108/68; PULSE 103; RESP 18; TEMP 36.7; O2SAT 97
[2023-10-16] MEDS: ACETAMINOPHEN 500 MG TABLET 1000 MG PO ×2 (02:30→08:38)
[2023-10-16] MEDS: IBUPROFEN 600 MG TABLET PO (05:20)
[2023-10-16 07:00] VITALS: BP 98/63; PULSE 86; RESP 16; TEMP 36.6; O2SAT 98
[2023-10-16 08:33] VITALS: BP 114/72; PULSE 90; RESP 16; TEMP 36.6; O2SAT 98
[2023-10-16] MEDS: DOCUSATE SODIUM 100 MG CAPSULE PO (08:38)
[2023-10-16] MEDS: FERROUS SULFATE 325 MG TABLET PO (08:38)
--- NOTE | 2023-10-16 09:07 | P.DS_ITS ---
DS: Providers Provider Time Seen by Provider: 09:00 Date Seen: 10/16/23 Date of admission: 10/12/23 09:51 Primary care physician: Ksenia Hannon MD Admitting Clinician: Lennie Arias MD Attending Physician on discharge: Lucia Madsen MD Date of Discharge: 10/16/23 DS: Diagnosis Discharge Diagnosis (1) care following delivery: Status: Acute (2) Lactating mother: Status: Acute (3) Preeclampsia: Status: Acute (4) Acute blood loss anemia: Status: Acute Exam Const: Vital Signs, click to edit/add: Vital Signs - 24 hr 10/15/23 09:15 10/15/23 12:30 10/15/23 16:15 Temperature 97.7 F 98.6 F 98.1 F Pulse Rate [Pulse Oximeter] 95 110 H 98 Respiratory Rate 18 18 18 Blood Pressure [Le ft Arm] 101/64 103/66 113/73 Pulse Oximetry 97 97 97 Oxygen Delivery Me thod Room Air Room Air Room Air 10/15/23 20:21 10/16/23 02:30 10/16/23 07:00 Temperature 98.1 F 98.1 F 97.8 F Pulse Rate [Pulse Oximeter] 100 103 H 86 Respiratory Rate 17 18 16 Blood Pressure [Le ft Arm] 117/72 108/68 98/63 Pulse Oximetry 97 97 98 Oxygen Delivery Me thod Room Air Room Air Room Air 10/16/23 08:33 Temperature 97.8 F Pulse Rate [Pulse Oximeter] 90 Respiratory Rate 16 Blood Pressure [Le ft Arm] 114/72 Pulse Oximetry 98 Oxygen Delivery Me thod Room Air Documenting provider has reviewed patient's vital signs: yes Common normals: no apparent distress and oriented x3 General appearance: cooperative and comfortable HENMT: Common normals: normocephalic Head and scalp: normocephalic Resp: Common normals: normal respiratory effort Cardio: Common normals: regular rate and regular rhythm Rate: regular rate Rhythm: regular rhythm GI: Common normals: soft to palpation and non-tender Inspection: incision (clean, dry, intact) Inspection of incision: healing well Palpation: soft Extremity: Common normals: normal to inspection and no pedal edema Neuro: Common normals: oriented x3 Psych: Common normals: affect normal OB - DS: Summary Hospital Course Hospital Course: The patient is a 33 year old G 1 now P 1001 admitted at 39 weeks gestation on 10/12/23 for induction of labor secondary to pre-eclampsia without severe features. She had a delivery complicated by hemorrhage due to uterine atony and bleeding uterine vessels, with a total estimated blood loss of 1975 mL. She delivered a viable male infant. She is breast feeding. the patient has done well. Her pain has been adequately controlled and vital signs have been stable. Peripartum Data Infant delivery method: Primary C/S; Labored Procedures: Procedures Operation Date: 10/13/23 21:30 Actual Procedure Side Surgeon p Primary low transverse Section Lottie Avila MD [place] Gender: Male Infant Discharge Plan: Home Time Spent with Patient Time attestation: Total time spent providing and/or coordinating discharge services: Discharge Plan Discharge Disposition: Home, Self-Care Date of Admission: 10/12/23 09:51 Attending Provider on Discharge: Lucia Madsen Primary Care Provider: Ksenia Hannon Condition: Stable Anticipated Discharge Date/Time: 10/16/23 09:14 Discharge Medications: New docusate sodium 100 mg Capsule 100 mg PO DAILY Qty: 30 0RF ibuprofen 600 mg Tablet 600 mg PO Q6H PRN (Reason: Pain) Qty: 30 0RF Continued lorazepam [Ativan] 0.5 mg tablet 0.25 - 0.5 mg PO QDAY PRN (Reason: panic attack) Qty: 10 0RF sumatriptan succinate [Imitrex] 100 mg tablet 100 mg PO .COMPLEX PRN (Reason: migraine headache) Qty: 7 4RF Rx Instructions: 100 mg orally PRN; trazodone 50 mg tablet 50 mg PO QDAY PRN (Reason: insomnia) Qty: 30 0RF Classic 28 mg iron- 800 mcg tablet 1 tab PO DAILY ondansetron HCl 4 mg tablet 4 mg PO TID PRN (Reason: nausea and vomiting) Qty: 30 3RF montelukast 10 mg tablet 10 mg PO QDAY Qty: 90 4RF Asmanex HFA 200 mcg/actuation HFA aerosol inhaler 1 puff inhalation QHS Qty: 13 12RF albuterol sulfate 90 mcg/actuation HFA aerosol inhaler 2 puff inhalation Q6H PRN (Reason: shortness of breath or wheezing) Qty: 8.5 4RF venlafaxine [Effexor XR] 37.5 mg capsule,extended release 24hr 37.5 - 150 mg PO QDAY Qty: 90 1RF Hold Instructions: Rx Instructions: Take 1 c po qd x 4 d, then increase to 2 c qd x 1 wk, then increase to 4 c daily for depression aspirin [Fabiano Low Dose Aspirin] 81 mg tablet,delayed release (DR/EC) 81 mg PO QDAY cholecalciferol (vitamin D3) 1,250 mcg (50,000 unit) capsule 1,250 mcg PO DIRECTED Qty: 10 0RF Rx Instructions: take 1 c po qwk x 5 wk, then 1 c monthly x 5 mo, for low vit d Discharge Orders: Discharge Order (Routine); Ordered 10/16/23 Ordered By: Lucia Madsen Patient Education: OB High Blood Pressure DC, OB Over the Counter Medication Information, OB /Breast Feeding Additional Instructions: Discharge instructions were reviewed with the patient including signs and symptoms of infection and home going medications Lifting Restrictions: 20 pounds for 6 weeks No not submerge incision under water X 2 weeks? Nothing vaginally for 6 weeks: no tampons or intercourse Do not drive while taking narcotic pain medication(s) Off Work or School for 8 weeks Symptoms to report to doctor: * Bleeding that saturates more than one pad per hour * Passing clots larger than the size of a golf ball * Pain not relieved by prescribed medication * Fever above 100.4 degrees Fahrenheit * A foul vaginal odor * Difficulty in emotions, mood, and functions * Thoughts of hurting yourself and/or * Painful, reddened area in your breast * Any drainage, redness, or tenderness in your IV/epidural site * Severe headache that doesn't improve after taking medications * Changes in vision, including temporary loss of vision, blurred vision, and/or light sensitivity * Upper abdominal pain (usually under ribs on the right side) * Decrease in urination or painful, frequent urinating * Chest pain * Shortness of breath * Tenderness or pain with redness and/swelling in the calf(s) of your leg Optional 2-week visit: incision check, discuss infant feeding concerns, review control options and screen for anxiety/depression. 6-week visit for an annual exam. consultation services are available to all mothers and babies for the first year after delivery.? To make an appointment, please call [phone]. Activity Level: No Restrictions Discharge Diet: Regular Follow Up Appointments: Ksenia Hannon MD [Primary Care Provider] - Forms: Lieboth Info Instructions DS:Data Additional Comments Additional comments: Hgb 8.5
== END 2023-10-16 11:10 | disposition home or self-care (01) | DRG 787 ==
PROVIDERS: Advanced Practice Midwife; Obstetrics & Gynecology; Admitting Provider Obstetrics & Gynecology; PCP Family Medicine; Visit Provider Obstetrics & Gynecology
PROC: (CPT 59514; principal; 2023-10-13 21:15)
DX: O61.0 Failed medical induction of labor (principal); D62 Acute posthemorrhagic anemia; O99.214 Obesity complicating childbirth; O99.344 Other mental disorders complicating childbirth; F32.A Depression, unspecified; F41.9 Anxiety disorder, unspecified; O28.8 Other abnormal findings on antenatal screening of mother; G89.18 Other acute postprocedural pain; O26.893 Other specified pregnancy related conditions, third trimester; Z67.41 Type O blood, Rh negative; O99.02 Anemia complicating childbirth; O62.2 Other uterine inertia; O99.824 Streptococcus B carrier state complicating childbirth; Z37.0 Single live birth; Z3A.39 39 weeks gestation of pregnancy
CPT/HCPCS: 01961; 36415; 59200; 64488; 76942; 80053; 82565; 82570; 84156; 84450; 84460; 84520; 85018; 85025; 85027; 85049; 85384; 85730; 86592; 86850; 86870; 86900; 86901; 86906; 99140; A9270; C9290; J0665; J0690; J0736; J1100; J1650; J1885; J2250; J2270; J2274; J2371; J2405; J2590; J2704; J2765; J3010; J3490; J7120

== ENCOUNTER 2023-10-28 09:34 | Outpatient (CLI) | payer OTHER, SELFPAY ==
--- NOTE | 2023-10-28 10:52 | P.LACCB_ITS ---
Consult Note - Mom Date of Visit Date of visit: 10/28/23 care consultant: Claudia Salcedo Visit Code: Visit Patient's Information Phone number: [phone] : 1 Para: 1 Allergies oxycodone Allergy (Severe, Verified 10/27/23 14:37) Vomiting azithromycin Allergy (Verified 10/27/23 14:37) GI walnut Allergy (Verified 10/27/23 14:37) escitalopram [From Lexapro] Adverse Reaction (Intermediate, Verified 10/27/23 14:37) Dizziness Mother's Medical History: Medical History (Updated 10/27/23 @ 17:03 by Mary Jane Muse CNM) Carpal tunnel syndrome ?G56.00 - Carpal tunnel syndrome, unspecified upper limb (ICD-10) Low vitamin D level ?R79.89 - Other specified abnormal findings of blood chemistry (ICD-10) Passive suicidal ideations ?R45.851 - Suicidal ideations (ICD-10) Medication management ?Z79.899 - Other computer terminal operator (current) drug therapy (ICD-10) Mild persistent asthma ?J45.30 - Mild persistent asthma, uncomplicated (ICD-10) Anxiety ?F41.9 - Anxiety disorder, unspecified (ICD-10) Depression ?F32.A - Depression, unspecified (ICD-10) Work Plans: Returns to work at [employer] in 10 weeks Delivery Information Delivery type: Primary C/S; Labored Weeks Gestation: 39.1 Gestational Age: AGA Weight: 3.64 kg Discharge Weight: 3.356 kg Baby's Information Baby's Age at Visit: 15 days Baby's Provider or Clinic: Dr. Perez Jaundice: No Reason for Consult Reason for Consult: pain with latching Past Experience Past Experience: No Current Frequency of Day Feedings: every 1 - 3 hours Frequency of Night Feedings: every 3 - 4 hours Both Breasts: No Suck: strong Latch: fairly wide Length of Time: 10 - 20 minutes Pumping Pumping: Yes (mom will pump on the side baby doesn't nurse from and BID) Supplementing EMB Supplement: No Formula Supplement: No Baby Elimination Number of Wet Diapers a Day: with every feeding Number of BM a Day: with almost every feeding Breast/Nipple Condition Breast Information: WNL Engorgement: No Maternal Nipple Condition - Left: Common Nipple Maternal Nipple Condition - Right: Common Nipple Sore Nipples: Yes Onsite Pre-Feed weight: 3.792 kg Post-Feed weight: 3.872 kg Milk Transferred (mL): 80 Assessments/Interventions Assessments/Interventions: Met with mom and this now 15 day old ex- term AGA baby for consult. Mom reports continued pain with the initial latch and also states that during a feeding baby will pull off the breast and little but then re-latch and that is also uncomfortable. He's nursing every 1 - 4 hours and nursing sessions last 10 - 20 minutes total. She will sometimes offer both sides but states he's usually satisfied after one side. She pumps the side baby doesn't nurse from and also pumps both sides after one of his admin dir feeds; she gets 2 - 3 oz total each time. POC have not yet introduced a bottle. Breasts WNL- symmetrical with rounded lower quadrants, intramammary distance is < 1.5 inches. Nipples are everted and don't flatten or retract on compression, no damage noted. Baby has gained 31 grams/day since his 2 week WCC on 10/25 and he's now 152 grams (5 oz) above BW at 15 DOL. POC deny any caput/cephalohematoma at delivery. They feel he has equal ROM when turning his head and moving his extremities. His palate is a little high and his upper frenulum is a little tight. He has a strong suck on a finger and the tongue does extend over the gumline, but not by much. The lower frenulum was difficult to visualize, posterior? Mom latched baby in the cradle position on the left and was in immediate pain. When she unlatched him she was coached to hold him in the cross cradle position, really turn him in tummy to tummy, support her breast from underneath in the C hold, and aim her nipple for his nose. She reported a little more comfort overall with his latch, but reported it was still painful initially. The rest of the feeding was more comfortable until baby pulled back onto more of the nipple. It didn't seem to be a flow issue (too fast or too slow). Mom unlatched him and tried again. When he did it again, suggested she take him off and see if he was trying to tell us he was satisfied. He was content for a few minutes and when he started to fuss she offered the right side using the ideas above to get the deepest latch possible. He nursed about 5 more minutes before pulling back. He was weighed and had transferred 80 ml. Plan: 1. Continue to nurse baby ALD or at least every 3 - 4 hours. Offer both sides at each feeding and try the ideas mentioned to get the deepest latch possible. Discussed ideas for if he pulls back to a more shallow latch d/t a fast vs. slow flow. He doesn't seem to be coming off d/t pain. 2. Encouraged her to hand express, use the Haakaa, or pump to comfort if needed after nursing. 3. Encouraged POC to wait a few more weeks to introduce a bottle. 4. Demonstrated the tug-of-war exercise POC could try to help him extend his tongue over the gumline a little more. Suggested they try this 4 - 5 times/day. 5. Baby has circumcision appointment today. Gave mom information on IBCLC in the [facility] if she has difficulty until one is hired for [employer] [facility], as well as handout on local pediatric dentists should she continue to have difficulty and want an evaluation for ankyloglossia. Meds Home Medications and Allergies Home Medications ?Medication ?Instructions ?Recorded ?Confirmed ?Type vits no.126-ferrous fum 1 tab PO DAILY 03/15/23 10/27/23 History 28 mg iron-folic acid 800 mcg tablet (Classic ) Allergies Allergy/AdvReac Type Severity Reaction Status Date / Time oxycodone Allergy Severe Vomiting Verified 10/27/23 14:37 azithromycin Allergy GI Verified 10/27/23 14:37 walnut Allergy Verified 10/27/23 14:37 escitalopram [From Lexapro] AdvReac Intermediate Dizziness Verified 10/27/23 14:37
== END 2023-10-28 09:35 | disposition home or self-care (01) ==
LOC: OB LAC 09:35
PROVIDERS: PCP Family Medicine; Visit Provider Family Medicine
DX: Z39.1 Encounter for care and examination of lactating mother (principal)
CPT/HCPCS: G0463

== ENCOUNTER 2025-02-11 16:42 | Outpatient (CLI) | payer OTHER, SELFPAY ==
--- NOTE | 2025-02-11 16:45 | CRLHL7_ITS ---
For Patients: As a result of the Cures Act, medical imaging exams and procedure reports are released immediately into your electronic medical record. You may view this report before your referring provider. If you have questions, please contact your health care provider. OB ULTRASOUND LESS THAN 14 WEEKS, 02/11/2025 CLINICAL HISTORY: Dating and viability. TECHNIQUE: Real time martell scale imaging of the fetus was performed. Transvaginal imaging performed. FINDINGS: LMP: 12/18/2024. REGINO by LMP: 09/24/2025. GA: 7 weeks 6 days. Previous US: No. CRL: 1.6 cm, 8 weeks 0 days. REGINO 09/23/2025. FHR: 171 bpm. GEST SAC: 2.8 cm, appears WNL. YOLK SAC: 3.3 mm, appears WNL. RIGHT OVARY: Not visualized. LEFT OVARY: Not visualized. IMPRESSION: 1. Single living intrauterine measures 8 weeks 0 days with sonographic due date 09/23/2025. 2. Nonvisualization of the ovaries. Royce Roa M.D. Diagnostic Radiologist [email or web address] Transcribed: 8:37 am DW/Dictated by: Royce Roa MD @ 02/12/2025 7:38:00 AM (Electronically Signed)
== END 2025-02-11 16:43 | disposition home or self-care (01) ==
LOC: US 16:42
PROVIDERS: PCP Family Medicine; Visit Provider Physician Assistant
DX: Z34.91 Encounter for supervision of normal pregnancy, unspecified, first trimester (principal); Z3A.08 8 weeks gestation of pregnancy
CPT/HCPCS: 76817

== ENCOUNTER 2025-02-11 18:13 | Outpatient (CLI) | payer OTHER, SELFPAY | END 2025-02-11 18:14 | disposition home or self-care (01) | PROVIDERS: PCP Family Medicine; Visit Provider Physician Assistant | DX: Z34.91 Encounter for supervision of normal pregnancy, unspecified, first trimester (principal); Z3A.01 Less than 8 weeks gestation of pregnancy | CPT/HCPCS: 82565; 82570; 83020; 83021; 84156; 84450; 84460; 84520; 85660; 86592; 86703; 86704; 86706; 86762; 86787; 86803; 86850; 86900; 86901; 87086; 87340; 87491; 87591 ==

== ENCOUNTER 2025-02-17 09:57 | Outpatient (CLI) | payer OTHER, SELFPAY | END 2025-02-17 09:58 | disposition home or self-care (01) | LOC: NFLDREF 17:12 | PROVIDERS: PCP Family Medicine; Referring Provider Family Medicine; Visit Provider Physician Assistant | DX: O99.211 Obesity complicating pregnancy, first trimester (principal); E66.01 Morbid (severe) obesity due to excess calories; Z3A.08 8 weeks gestation of pregnancy | CPT/HCPCS: 82570; 84156 ==

== ENCOUNTER 2025-03-08 13:42 | Outpatient (CLI) | payer OTHER, SELFPAY ==
[2025-03-08 15:51] LABS: Chlamydia DNA Amplified* NOT DETECTED (No Detected); GC DNA Amplified* NOT DETECTED (No Detected)
[2025-03-09 22:55] LABS: HPV Source Cervix
[2025-03-12 12:39] LABS: Pap Test Digital Imaging Done
== END 2025-03-08 13:43 | disposition home or self-care (01) ==
PROVIDERS: PCP Family Medicine; Visit Provider Registered Nurse
DX: Z34.91 Encounter for supervision of normal pregnancy, unspecified, first trimester (principal); Z3A.11 11 weeks gestation of pregnancy
CPT/HCPCS: 87491; 87591; 87624; 87625; 88141; 88142; 88175

== ENCOUNTER 2025-04-03 08:52 | Outpatient (CLI) | payer OTHER, SELFPAY | END 2025-04-03 08:53 | disposition home or self-care (01) | LOC: NFLDREF 04-04 19:08 | PROVIDERS: PCP Family Medicine; Referring Provider Family Medicine; Visit Provider Internal Medicine Nephrology | DX: O12.12 Gestational proteinuria, second trimester (principal) | CPT/HCPCS: 82570; 84156 ==

== ENCOUNTER 2025-04-29 03:31 | Emergency (ER) | payer OTHER, SELFPAY ==
[2025-04-29 03:38] VITALS: BP 113/74; PULSE 76; RESP 16; TEMP 37.4; O2SAT 100; BMI 41.1
--- NOTE | 2025-04-29 03:59 | CRLHL7_ITS ---
For Patients: As a result of the Century Cures Act, medical imaging exams and procedure reports are released immediately into your electronic medical record. You may view this report before your referring provider. If you have questions, please contact your health care provider. INDICATION: Right upper quadrant pain. Patient is 19 weeks . Patient has had a prior appendectomy. COMPARISON: None. TECHNIQUE: Reyes-scale and color Doppler ultrasound of the right upper quadrant. FINDINGS: Pancreas: Largely obscured by bowel gas but normal where seen. Liver: Normal-size. Normal hepatic echogenicity and normal echotexture. No mass. Patent portal vein with normal directional flow. Gallbladder and bile ducts: The gallbladder is very distended. Gallbladder diameter is 4.5 cm. There is a large amount of hyperechoic layering sludge within the lumen of the gallbladder. No shadowing calculi seen. Gallbladder wall thickness is 2 mm, normal. Negative sonographic Gonzalez`s sign. No pericholecystic fluid. No intrahepatic or extrahepatic biliary ductal dilatation. The common bile duct measures up to 5 mm. No discrete shadowing stone or sludge seen in the common bile duct. RIGHT Kidney: Renal length: 12.9 cm Parenchyma: Normal thickness and normal echogenicity. Cyst: None Mass: None Calculi: None Urinary tract: Not dilated. Abdominal aorta: Normal. No aneurysm. Ascites: None. IMPRESSION: 1. Distended gallbladder with a large amount of sludge but no sonographic findings of acute cholecystitis. 2. Minimal dilatation of the extrahepatic bile duct up to 5 millimeters. No choledocholithiasis seen. Dictated by Mary Jane Prescott MD @ 04/29/2025 7:41:51 AM (Electronically Signed)
--- NOTE | 2025-04-29 04:06 | ED.GENADULT ---
HPI - General Adult General Chief complaint: Abdominal Pain Stated complaint: right side abdominal pain-19 weeks Time Seen by Provider: 04/29/25 03:48 Source: patient and family Mode of arrival: ambulatory Limitations: no limitations History of Present Illness HPI narrative: 35-year-old female presents to the ED with abdominal pain underneath the right anterior/lateral ribs for the past 2 days, worsening tonight. No fever. No vomiting. No bloody stools. Reports her bowels have been moving normally. Did not try any Tylenol, antacids or other reasonable treatments prior to coming to the emergency room. No trauma or injury. Denies prior history of similar symptoms. Pain achy, worsening in nature. She does happen to be 19 weeks . Is not experiencing any vaginal bleeding. Reports normal movement. o negative blood type. Denies dysuria or hematuria. No shortness of breath or productive cough. Past medical history notable for obesity. Reports that she had elevated blood pressure in prior , not currently. EMR also reflects history of asthma and depression. Patient denies current long-term medications, pulses though she has prescriptions for promethazine, aspirin albuterol. Nonsmoker. ROS is notable for the intra-abdominal symptoms only, otherwise denies times 12 systems. Related Data Home Medications ?Medication ?Instructions ?Recorded ?Confirmed vits no.126-ferrous fum 1 tab PO DAILY 03/15/23 04/08/25 28 mg iron-folic acid 800 mcg tablet (Classic ) aspirin 81 mg tablet 81 mg PO QDAY 04/08/25 04/08/25 Previous Rx's ?Medication ?Instructions ?Recorded sumatriptan succinate 100 mg 100 mg PO .COMPLEX PRN migraine 12/23/22 tablet (Imitrex) headache #7 tabs Held on 02/12/25. Instructions: Home Medication placed on hold at Doctor's office albuterol sulfate 90 mcg/actuation 2 puff inhalation Q6H PRN 02/03/23 aerosol inhaler shortness of breath or wheezing #8.5 grams promethazine 12.5 mg tablet 12.5 - 25 mg (1 - 2 x 12.5 mg) PO 04/08/25 Q4-6H PRN nausea and vomiting #30 tabs Allergies Allergy/AdvReac Type Severity Reaction Status Date / Time oxycodone Allergy Severe Vomiting Verified 04/29/25 03:42 azithromycin Allergy GI Verified 04/29/25 03:42 walnut Allergy Verified 04/29/25 03:42 escitalopram (From Lexapro) AdvReac Intermediate Dizziness Verified 04/29/25 03:42 [facility] Medical History Preeclampsia ?O14.90 - Unspecified pre-eclampsia, unspecified trimester (ICD-10) Acute blood loss anemia ?D62 - Acute posthemorrhagic anemia (ICD-10) Low vitamin D level ?R79.89 - Other specified abnormal findings of blood chemistry (ICD-10) Passive suicidal ideations ?R45.851 - Suicidal ideations (ICD-10) Medication management ?Z79.899 - Other mcc (current) drug therapy (ICD-10) Mood disorder ?F39 - Unspecified mood [affective] disorder (ICD-10) History of Holter monitoring ?Z98.890 - Other specified postprocedural states (ICD-10) 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 - Other specified metabolic disorders (ICD-10) Menorrhagia ?N92.0 - Excessive and frequent menstruation with regular cycle (ICD-10) Mild persistent asthma ?J45.30 - Mild persistent asthma, uncomplicated (ICD-10) Anxiety ?F41.9 - Anxiety disorder, unspecified (ICD-10) Depression ?F32.A - Depression, unspecified (ICD-10) Palpitations ?R00.2 - Palpitations (ICD-10) Migraine with aura ?G43.109 - Migraine with aura, not intractable, without status migrainosus (ICD-10) Surgical History History of colonoscopy (2007) ?Z98.890 - Other specified postprocedural states (ICD-10) Hx of esophagogastroduodenoscopy (2007) ?Z98.890 - Other specified postprocedural states (ICD-10) History of hip surgery (2015) ?Z98.890 - Other specified postprocedural states (ICD-10) History of appendectomy (~2003) ?Z90.49 - Acquired absence of other specified parts of digestive tract (ICD-10) Family History Maternal Grandmother Valvular heart disease Mother Depression with anxiety Bipolar disorder Father Stroke Social History Narrative: SOCIAL? ? Education: some college? ? Work: [employer], [employer]? ? Partner: Miles, Not , [employer]? ? Lives with: Miles? ? Pets: Dog? ? Abuse: Denies past Safe at home with current partner ? ? Special Diet: Denies? ? Ok with a blood transfusion: yes? ? Culture or confucianist beliefs: denies? RISK FACTORS? ? Exercise Times/wk: denies, previous runner, makes her nauseated. ? ? Depression/Anxiety: Both.? ? Previous Treatments: Prozac, escitalopram Seat Belt Use: Routinely ? Smoking: Denies past/present? ? Alcohol/day: Denies while ? ? Caffeine: Occasionally ? ? Drug Use: Denies past/present? What is your current living situation?: I presently have a place to live Problems where you live: no known problems In the past 12 months, utilities in danger of being shut off: no In past 12 months, lack of transportation kept you from medical appts, meetings, work, or getting things needed for daily living: no In the past 12 mos, have been you worried that your food would run out before you had money to buy more?: never true In the past 12 mos, the food you bought just didn't last and you didn't have money to buy more?: never true Smoking Status: Never smoker How often do you have a drink containing alcohol: never AUDIT-C Alcohol total score: 0 Non-prescribed substance use: denies use How often does anyone, including family, friends and others, physically hurt you: never How often does anyone, including family, friends and others, insult or talk down to you: never How often does anyone, including family, friends and others, threaten you with harm: never How often does anyone, including family, friends and others, scream or curse at you: never Exam Const: Vital Signs, click to edit/add: Vital Signs - 24 hr 04/29/25 03:38 Temperature 99.3 F Pulse Rate [Right Pulse Oximeter] 76 Respiratory Rate 16 Blood Pressure [Ri ght Upper Arm] 113/74 Pulse Oximetry 100 Oxygen Delivery Me thod Room Air Documenting provider has reviewed patient's vital signs: yes Common normals: no apparent distress and alert General appearance: cooperative HENMT: Common normals: normocephalic and moist oral mucous membranes Head and scalp: normocephalic Mouth: oral and palatal mucosa normal Eye: Common normals: conjunctivae normal General eye: normal appearance of both eyes Conjunctiva: conjunctiva(e) normal Neck & C-Spine: Common normals: no lymphadenopathy General: normal visual inspection Resp: Common normals: normal respiratory effort, no use of accessory muscles and clear to auscultation bilaterally Effort & inspection: able to speak in complete sentences Auscultation: clear to auscultation bilaterally Cardio: Common normals: regular rate, regular rhythm, S1 normal heart sound, S2 normal heart sound and no murmurs Rate: regular rate Rhythm: regular rhythm Heart sounds: S1 normal and S2 normal GI: Common normals: Normal to inspection, nondistended, normoactive bowel sounds present, soft to palpation, no hepatosplenomegaly and no masses Palpation: soft and no hepatosplenomegaly Other: Fundal height consistent with about an 18 week gestation. No obvious fundal tenderness. There is some very mild tenderness in the right upper quadrant of the abdomen, certainly no rebound tenderness or guarding. No mass. : Common normals: no CVA tenderness Bladder/kidney exam: no CVA tenderness Back & Pelvis: Common normals: no CVA tenderness Extremity: Common normals: normal to inspection and normal capillary refill Neuro: Common normals: moves all extremities Sensorium/orientation: alert Speech: speech normal Psych: Attitude: engaged Activity/motor behavior: appropriate eye contact Mood and affect: euthymic mood Insight: insight good Judgement: judgment good Skin: Common normals: no rashes or lesions noted General skin exam: no rashes or lesions noted Course Course ED Course: 35-year-old female with right upper quadrant abdominal pain. Differential diagnosis including cholecystitis, choledocholithiasis, cholestasis of , biliary dyskinesia, colitis, constipation, musculoskeletal pain, referred respiratory process, pulmonary embolism, GERD, gas pain, musculoskeletal pain, complication, amongst others. At this time, has no tachycardia or shortness of breath, I do not think there is any respiratory process going on here. Will obtain typical intra-abdominal labs to look for pancreatitis, biliary obstruction, infection inflammation. Will give Tylenol and famotidine for symptom control. Ultrasound will arrive in a couple of hours. Would like to get a right upper quadrant ultrasound. I let patient know that she will have await for this but I do think that it is medically appropriate. Will await these findings. Consider additional workup per consultants if blood work warrants. Reevaluation(s) Time of Reevaluation #1: 07:58 Reevaluation #1: Counseled patient on findings. Thankfully no signs of biliary obstruction or pancreatitis. No signs of elevated white count or other infection or inflammatory markers. Ultrasound does clearly show lots of gallstones and sludge. I do think this is the etiology of her symptoms. At this point though does not warrant or necessitate surgical intervention, especially at this stage of . Rationale reviewed with patient. If she has persistent symptoms, fever, vomiting, other signs of complication, we definitely should reconsider treatment plan. She will keep her follow-up appointment next week with her OB team. It is okay to use Tylenol for mild symptoms. I clearly stressed the importance of fevers, persistent vomiting, severe pain all is indications to come back to the ER right away. Vital Signs Vital signs: Initial Vital Signs Temperature 99.3 F 04/29/25 03:38 Temperature Source Temporal Artery Scan 04/29/25 03:38 Pulse Rate 76 04/29/25 03:38 Pulse Rhythm Regular 04/29/25 03:38 Pulse Strength 3+ Normal 04/29/25 03:38 Respiratory Rate 16 04/29/25 03:38 Blood Pressure 113/74 04/29/25 03:38 Blood Pressure Mean 87 04/29/25 03:38 Blood Pressure Position Sitting 04/29/25 03:38 Pulse Oximetry 100 04/29/25 03:38 Oxygen Delivery Method Room Air 04/29/25 03:38 Vital Signs Temperature 99.3 F 04/29/25 03:38 Pulse Rate 76 04/29/25 03:38 Respiratory Rate 16 04/29/25 03:38 Blood Pressure 113/74 04/29/25 03:38 Pulse Oximetry 100 04/29/25 03:38 Oxygen Delivery Method Room Air 04/29/25 03:38 Temperature 99.3 F 04/29/25 03:38 Pulse Rate 76 04/29/25 03:38 Respiratory Rate 16 04/29/25 03:38 Blood Pressure 113/74 04/29/25 03:38 Pulse Oximetry 100 04/29/25 03:38 Oxygen Delivery Method Room Air 04/29/25 03:38 Medications Administered Medications: Discontinued Medications Generic Name Dose Route Start Last Admin Trade Name Bhargavi PRN Reason Stop Dose Admin Acetaminophen 1,000 mg 04/29/25 03:59 04/29/25 04:12 Acetaminophen 500 Mg Tablet PO 04/29/25 04:00 1,000 mg ONCE ONE Administration Famotidine 20 mg 04/29/25 03:59 04/29/25 04:12 Famotidine 20 Mg Tablet PO 04/29/25 04:00 20 mg ONCE ONE Administration Medical Decision Making Lab Data Lab results reviewed: Yes I reviewed the patient's lab results Lab results narrative: No significant leukocytosis, hemoglobin normal. Electrolytes, renal function and liver enzymes reassuring. No signs of pancreatitis. Labs: Lab Results 04/29/25 04/29/25 Range/Units 04:10 06:20 WBC 7.73 (4.50-11.00) K/uL RBC 4.21 (4.00-5.20) m/uL Hgb 11.9 L (12.0-16.0) gm/dL Hct 34.4 (33.0-51.0) % MCV 82 (80-100) fL MCH 28 (26-34) pg MCHC 35 (32-36) gm/dL RDW Coeff of Christina 14.4 (11.5-15.5) % Plt Count 264 (140-440) K/uL Neut % (Auto) 71.9 (42.0-72.0) % Lymph % (Auto) 21.0 (20-44) % Ponce % (Auto) 4.8 (0.0-11.0) % Eos % (Auto) 1.6 (0.0-7.0) % Baso % (Auto) 0.4 (0.0-3.0) % Neut # (Auto) 5.57 (1.7-7.0) K/uL Lymph # (Auto) 1.62 (0.90-2.90) K/uL Ponce # (Auto) 0.40 (0.00-0.90) K/UL Eos # (Auto) 0.12 (0.00-0.50) K/uL Baso # (Auto) 0.03 (0.00-0.30) K/uL Abs Immat Gran (auto) 0.02 (0.00-0.30) K/uL Imm/Tot Granulo (auto) 0.3 % Sodium 134 L (135-149) mmol/L Potassium 3.4 L (3.6-5.1) mmol/L Chloride 104 (96-114) mmol/L Carbon Dioxide 20 (20-32) mmol/L Anion Gap 10 (7-15) mEq/L BUN 7 (5-24) mg/dL Creatinine 0.5 (0.5-1.5) mg/dL Estimated Creat Clear 144.00 Estimated GFR 127 ml/min Glucose 97 (60-115) mg/dL Calcium 8.5 (8.4-10.6) mg/dL Total Bilirubin 0.9 (0.1-1.5) mg/dL AST 22 (12-35) U/L ALT 18 (4-35) U/L Alkaline Phosphatase 58 (40-150) U/L C-Reactive Protein 2.3 H (0.5-1.0) mg/dL Total Protein 6.3 (6.0-8.3) g/dL Albumin 3.7 (3.3-5.0) g/dL Lipase 40 (23-300) U/L Urine Color Yellow (Yellow) Urine Appearance Clear (Clear) Urine pH 6.0 (5.0-8.5) Ur Specific Haskins 1.015 (1.000-1.030) Urine Protein Negative (Negative) Urine Glucose (UA) Negative (Negative) Urine Ketones Negative (Negative) Urine Blood Negative (Negative) Urine Nitrite Negative (Negative) Urine Bilirubin Negative (Negative) Urine Urobilinogen 2.0 A (0.2-1.0) Ur Leukocyte Esterase Negative (Negative) Urine RBC 0-2 (0-2) Urine WBC 0-2 (0-5) Ur Squamous Epith Cells Moderate A (None-Few) Urine Bacteria Moderate A (None) Urine Mucus Few A (None) Imaging Data US - abdomen: Attestation: I have reviewed the pertinent imaging results. My impression: Loss of sludge and small stones but no signs of a duct dilation. Radiologist's impression: IMPRESSION: 1. Distended gallbladder with a large amount of sludge but no sonographic findings of acute cholecystitis. 2. Minimal dilatation of the extrahepatic bile duct up to 5 millimeters. No choledocholithiasis seen. Dictated by Mary Jane Prescott MD @ 04/29/2025 7:41:51 AM Discharge Plan Discharge Clinical Impression: Biliary sludge, Gallstones without obstruction of gallbladder Patient Disposition: Home w/ Parent or Adult Condition: Stable Instructions: Gallstones (ED) Additional Instructions: As we discussed, you have lots of small gallstones and biliary sludge. These are build up of crystals in your gallbladder that causes spasms and are most certainly the cause of your pain today. Thankfully, there are no signs of pancreatitis, biliary obstruction, infection or other dangerous complication. The hormones of do tend to accelerate the production of gallstones and increase the chance of gallbladder spasms as well. The only full treatment is gallbladder removal. This is not ideal at this stage of . Hopefully, you do not have any more pain spasms but you are at high risk of this becoming infected or obstructed. If you have persistent vomiting, persistent severe pain, any fevers or other signs of complication, please come back to the ER right away. And if you do have recurrent spells, sometimes surgery is warranted when we weigh out the risks and benefits potentially. It is okay for you to use Tylenol if you have mild discomfort. Try to avoid fatty foods if possible. Keep your pending appointment with her Ob provider for next week. Keep them in the loop of any future symptoms and flares, as surgical consult or other treatments may be warranted. Activity Level: Activity as Tolerated Discharge Diet: Regular Prescriptions: No Action sumatriptan succinate [Imitrex] 100 mg tablet 100 mg PO .COMPLEX PRN (Reason: migraine headache) Qty: 7 4RF Rx Instructions: 100 mg orally PRN; Classic 28 mg iron- 800 mcg tablet 1 tab PO DAILY aspirin 81 mg tablet 81 mg PO QDAY albuterol sulfate 90 mcg/actuation HFA aerosol inhaler 2 puff inhalation Q6H PRN (Reason: shortness of breath or wheezing) Qty: 8.5 4RF promethazine 12.5 mg tablet 12.5 - 25 mg PO Q4-6H PRN (Reason: nausea and vomiting) Qty: 30 2RF Follow Up/Referrals: Ksenia Hannon MD [Primary Care Provider, Family Practice] Stand Alone Forms: [email or web address] Info Instructions
[2025-04-29] MEDS: ACETAMINOPHEN 500 MG TABLET 1000 MG PO (04:12)
[2025-04-29] MEDS: FAMOTIDINE 20 MG TABLET PO (04:12)
[2025-04-29 04:16] LABS: Hematocrit* 34.4 % (33.0-51.0); Hemoglobin* 11.9 gm/dL (12.0-16.0); Immature Granulocytes Abs Auto 0.02 K/uL (0.00-0.30); Immature Granulocytes Pct Auto 0.3 %; Lymphocytes Absolute Auto 1.62 K/uL (0.90-2.90); Mean Corpuscular HGB Conc 35 gm/dL (32-36); Mean Corpuscular Hemoglobin 28 pg (26-34); Mean Corpuscular Volume 82 fL (80-100); RDW Coefficient of Variation % 14.4 % (11.5-15.5); Red Blood Count* 4.21 m/uL (4.00-5.20); White Blood Count* 7.73 K/uL (4.50-11.00)
[2025-04-29 04:20] LABS: Slide Review Reflex No
[2025-04-29 04:31] LABS: Albumin* 3.7 g/dL (3.3-5.0); Chloride* 104 mmol/L (96-114); Potassium* 3.4 mmol/L (3.6-5.1)
[2025-04-29 04:34] LABS: Alanine Aminotransferase* 18 U/L (4-35); Alkaline Phosphatase* 58 U/L (40-150); Aspartate Amino Transferase* 22 U/L (12-35); Bilirubin Total* 0.9 mg/dL (0.1-1.5); Blood Urea Nitrogen* 7 mg/dL (5-24); Calcium* 8.5 mg/dL (8.4-10.6); Carbon Dioxide* 20 mmol/L (20-32); Creatinine* 0.5 mg/dL (0.5-1.5); Est. Creatinine Clearance* 144.00; Estimated Glomerular Filt Rate 127 ml/min; Glucose* 97 mg/dL (60-115); Total Protein* 6.3 g/dL (6.0-8.3)
[2025-04-29 04:40] LABS: Anion Gap 10 mEq/L (7-15); Sodium* 134 mmol/L (135-149)
[2025-04-29 06:39] LABS: Appearance Urine Clear (Clear)
== END 2025-04-29 08:04 | disposition home or self-care (01) ==
PROVIDERS: Emergency Provider Family Medicine; PCP Family Medicine
DX: O99.612 Diseases of the digestive system complicating pregnancy, second trimester (principal); K80.20 Calculus of gallbladder without cholecystitis without obstruction; Z3A.19 19 weeks gestation of pregnancy
CPT/HCPCS: 36415; 76705; 80053; 81001; 81003; 83690; 85025; 86140; 87086; 99284; A9270

== ENCOUNTER 2025-05-08 08:32 | Outpatient (CLI) | payer OTHER, SELFPAY | END 2025-05-08 08:33 | disposition home or self-care (01) | LOC: US 08:33 | PROVIDERS: PCP Family Medicine; Visit Provider Obstetrics & Gynecology | DX: O99.212 Obesity complicating pregnancy, second trimester (principal); E66.01 Morbid (severe) obesity due to excess calories; O12.12 Gestational proteinuria, second trimester; Z3A.20 20 weeks gestation of pregnancy | CPT/HCPCS: 76811 ==

== ENCOUNTER 2025-05-09 08:34 | Outpatient (CLI) | payer OTHER, SELFPAY | END 2025-05-09 08:35 | disposition home or self-care (01) | LOC: NFLDREF 05-14 14:28 | PROVIDERS: PCP Family Medicine; Referring Provider Family Medicine; Visit Provider Internal Medicine Nephrology | DX: Z34.92 Encounter for supervision of normal pregnancy, unspecified, second trimester (principal) | CPT/HCPCS: 80069; 82570; 84156; 84450; 84460; 87086 ==